=== PATIENT | female | born 1965 | race Caucasian/White ===

== ENCOUNTER → 2017-08-27 | Day surgery (SDC) | payer BC ==
--- OUTSIDE RECORDS SUMMARY | 2017-08-27 09:46 | XMS REPORT ---
:1965 Author Organization [employer] Care Team Providers Name Role Phone Arie Mayer Provider Role Unavailable Allergies No Known Allergies Problems Problem Type Condition Code Onset Dates Condition Status Problem Thyroid nodule E04.1 Active Problem HTN (hypertension), benign I10 Active Problem Anxiety F41.9 Active Assessment Thyroid nodule E04.1 Active Problem Mixed hyperlipidemia E78.2 Active Problem Status post hysterectomy Z90.710 Active Medications No Known Medications Results No Known Results Summary Purpose [facility] Submission
--- OUTSIDE RECORDS SUMMARY | 2017-08-27 09:46 | XMS REPORT ---
:1965 Author Organization [employer] Care Team Providers Name Role Phone Arie Mayer Provider Role Unavailable Allergies No Known Allergies Problems Problem Type Condition Code Onset Dates Condition Status Problem Thyroid nodule E04.1 Active Problem HTN (hypertension), benign I10 Active Problem Anxiety F41.9 Active Problem Mixed hyperlipidemia E78.2 Active Problem Status post hysterectomy Z90.710 Active Medications No Known Medications Results No Known Results Summary Purpose [employer] Submission
--- OUTSIDE RECORDS SUMMARY | 2017-08-27 09:46 | XMS REPORT | Clinical Summary ---
:1965 Author Organization [facility] Address [address] [place] [address] Care Team Providers Name Role Phone Asked, No Pcp Primary Care Provider Unavailable Allergies Active Allergy Reactions Severity Noted Date Comments Codeine GI Intolerance 06/09/2017 Abdominal pain/ stomach cramps Erythromycin GI Intolerance 06/09/2017 Abdominal cramps Current Medications Prescription Sig. Disp. Refills Start Date End Date Status ESTROGENS, CONJUGATED Take 1 tablet Active (PREMARIN ORAL) by mouth daily. ACETAMINOPHEN Take 1 tablet Discontinued (TYLENOL ORAL) by mouth 8 every 6 (six) hours as needed (for pain). IBUPROFEN ORAL Take 1 tablet Discontinued by mouth 8 every 6 (six) hours as needed (for pain). atorvastatin Take 1 tablet 30 tablet 0 06/10/2017 (LIPITOR) 20 MG (20 mg total) 8 tablet by mouth nightly for 30 days. Default OP ins metoprolol tartrate Take 1 tablet 60 tablet 0 06/10/2017 (LOPRESSOR) 25 mg (25 mg total) 8 tablet by mouth 2 (two) times a day for 30 days. amLODIPine (NORVASC) Take 1 tablet 30 tablet 0 06/11/2017 10 mg tablet (10 mg total) 8 by mouth daily for 30 days. cyclobenzaprine Take 1 tablet 15 tablet 0 06/10/2017 (FLEXERIL) 5 mg (5 mg total) 8 tablet by mouth 3 (three) times a day as needed for muscle spasms for up to 30 days. Active Problems Problem Noted Date Chest pain 06/09/2017 Encounters Date Type Specialty Care Team Description 07/02/2017 Hospital Encounter Radiology Hammad Ortiz Lumbar radiculopathy MD Bunny 07/02/2017 Hospital Encounter Radiology Hammad Ortiz Pain in thoracic MD Bunny spine 06/30/2017 Pre-Admit Testing Pre-Admission Hammad Ortiz Appointment Testing MD Bunny 06/30/2017 Anesthesia Event Radiology Indu Bass, BOBBI 06/25/2017 Procedure Pass Radiology 06/25/2017 Procedure Pass Radiology 06/25/2017 Ancillary Orders Radiology Hammad Ortiz Lumbar radiculopathy MD Bunny 06/25/2017 Ancillary Orders Radiology Hammad Ortiz Pain in thoracic MD Bunny spine 06/25/2017 Transcribe Orders Radiology Samina Thorne Pain in thoracic spine ( Primary Dx); Lumbar radiculopathy 06/09/2017 Orders Only Procedural [place], Cardiology Nse-Sandra Chase NP-C 06/09/2017 Orders Only Procedural Fredo Martins Cardiology 06/08/2017 - Emergency General Internal Bisi Turk, Chest pain, unspecified type (Primary Dx); 06/10/2017 Medicine DO Dyspnea, unspecified type; Ngozi Allison MD Mass of right kidney after 08/26/2016 Social History Tobacco Use Types Packs/Day Years Used Date Never Smoker Smokeless Tobacco: Never Used Alcohol Use Drinks/Week oz/Week Comments No Sex Assigned at Date Recorded Not on file Last Filed Vital Signs Vital Sign Reading Time Taken Blood Pressure 127/71 07/02/2017 11:15 AM CDT Pulse 68 07/02/2017 11:15 AM CDT Temperature 36.6 C (97.8 F) 07/02/2017 10:15 AM CDT Respiratory Rate 16 07/02/2017 11:15 AM CDT Oxygen Saturation 92% 07/02/2017 11:15 AM CDT Inhaled Oxygen Concentration - - Weight 103 kg (228 lb) 07/02/2017 7:40 AM CDT Height 160 cm (5' 3") 06/30/2017 12:29 PM CDT Body Mass Index 40.39 07/02/2017 7:40 AM CDT Plan of Treatment Health Maintenance Due Date Last Done Comments PAP SMEAR 09/10/1987 COLONOSCOPY 2016 MAMMOGRAM 2016 SHINGRIX VACCINE (#1) 2016 INFLUENZA VACCINE 11/19/2017 Procedures Procedure Name Priority Date/Time Associated Comments Diagnosis ECHOCARDIOGRAM 2D Routine 06/09/2017 6:05 Results for this COMPLETE W MMODE PM [employer] procedure are in SPECTRAL COLOR DOPPLER the results (48728) section. after 08/26/2016 Results MRI Thoracic Spine W Wo Contrast (07/02/2017 9:55 AM) Specimen Performing Laboratory [facility] [address] [place] [address] Narrative EXAMINATION:MRI THORACIC SPINE W WO CONTRAST CLINICAL HISTORY:M54.6 Pain in thoracic spine, M54.6 COMPARISON:None. Findings: Thoracic spine alignment is within normal limits. Mild multilevel endplate degenerative changes. Incidental vertebral body hemangioma at T4. 1.3 cm well-circumscribed densely sclerotic lesion at T6 without postcontrast enhancement or adjacent edema likely due to bone island. No central canal or foraminal narrowing. Visualized spinal cord is normal in size and signal intensity. Airspace opacification dependently may due to atelectasis, refer to dedicated imaging. IMPRESSION: No central canal or foraminal narrowing in the thoracic spine. No acute bony abnormalities. [facility]-[id number] Procedure Note Hm Interface, Radiology Results Incoming - 07/02/2017 11:52 AM CDT EXAMINATION: MRI THORACIC SPINE W WO CONTRAST CLINICAL HISTORY: M54.6 Pain in thoracic spine, M54.6 COMPARISON: None. Findings: Thoracic spine alignment is within normal limits. Mild multilevel endplate degenerative changes. Incidental vertebral body hemangioma at T4. 1.3 cm well-circumscribed densely sclerotic lesion at T6 without postcontrast enhancement or adjacent edema likely due to bone island. No central canal or foraminal narrowing. Visualized spinal cord is normal in size and signal intensity. Airspace opacification dependently may due to atelectasis, refer to dedicated imaging. IMPRESSION: No central canal or foraminal narrowing in the thoracic spine. No acute bony abnormalities. [facility]-[id number] MRI Lumbar Spine W Wo Contrast (07/02/2017 9:15 AM) Specimen Per[facility] [address] [place] [address] Narrative EXAMINATION:MRI LUMBAR SPINE W WO CONTRAST CLINICAL HISTORY:M54.16 Radiculopathylumbar region, M54.16 COMPARISON:June 10, 2017 FINDINGS: Lowermost functional disc space is assumed to be L5-S1. Lumbar spine alignement is within normal limits No suspicious focal bone marrow lesions. Visualized spinal cord is normal in appearance. No abnormal postcontrast enhancement. Exophytic fat-containing left renal mass compatible with given clinical history of cryoablation, refer to dedicated imaging. L1-2: No canal or foraminal narrowing. L2-3: No canal or foraminal narrowing. L3-4: Bilateral facet arthropathy. No canal or foraminal narrowing. L4-5: Bilateral facet arthropathy. Small posterior disc bulge. No canal or foraminal narrowing. L5-S1: Bilateral facet arthropathy. No canal or foraminal narrowing. IMPRESSION: Multilevel degenerative changes without canal or foraminal narrowing. [facility]-[id number] Procedure Note Interface, Radiology Results - 07/02/2017 12:04 PM CDT EXAMINATION: MRI LUMBAR SPINE W WO CONTRAST CLINICAL HISTORY: M54.16 Radiculopathy lumbar region, M54.16 COMPARISON: June 10, 2017 FINDINGS: Lowermost functional disc space is assumed to be L5-S1. Lumbar spine alignement is within normal limits No suspicious focal bone marrow lesions. Visualized spinal cord is normal in appearance. No abnormal postcontrast enhancement. Exophytic fat-containing left renal mass compatible with given clinical history of cryoablation, refer to dedicated imaging. L1-2: No canal or foraminal narrowing. L2-3: No canal or foraminal narrowing. L3-4: Bilateral facet arthropathy. No canal or foraminal narrowing. L4-5: Bilateral facet arthropathy. Small posterior disc bulge. No canal or foraminal narrowing. L5-S1: Bilateral facet arthropathy. No canal or foraminal narrowing. IMPRESSION: Multilevel degenerative changes without canal or foraminal narrowing. [facility]-[id number] CT Lumbar Spine Wo Contrast (06/10/2017 11:57 AM) Specimen Performing Laboratory [facility] [address] [place] [address] Narrative EXAMINATION:CT LUMBAR SPINE WO CONTRAST CLINICAL HISTORY:back pain COMPARISON:None. TECHNIQUE: Axial helical CT images throughout the lumbar spine were performed without IV contrast. Sagittal and coronal reformatted images were generated. All CT images were acquired using low-dose technique with automated exposure control. FINDINGS: There is no evidence of acute fracture, subluxation, or dislocation. There is normal lumbar lordosis and alignment. Vertebral bodies are preserved. There is no evidence of paraspinal hematoma. No significant spondylosis is appreciated. Intervertebral disc spaces are relatively preserved. There is minimal central shallow disc protrusion at L5-S1 level with no canal stenosis. Visualized paraspinal soft tissues are unremarkable. IMPRESSION: Unremarkable lumbar spinal CT with no evidence of acute traumatic abnormality. [id number] Procedure Note Hm Interface, Radiology Results Incoming - 06/10/2017 1:21 PM [employer] EXAMINATION: CT LUMBAR SPINE WO CONTRAST CLINICAL HISTORY: back pain COMPARISON: None. TECHNIQUE: Axial helical CT images throughout the lumbar spine were performed without IV contrast. Sagittal and coronal reformatted images were generated. All CT images were acquired using low-dose technique with automated exposure control. FINDINGS: There is no evidence of acute fracture, subluxation, or dislocation. There is normal lumbar lordosis and alignment. Vertebral bodies are preserved. There is no evidence of paraspinal hematoma. No significant spondylosis is appreciated. Intervertebral disc spaces are relatively preserved. There is minimal central shallow disc protrusion at L5-S1 level with no canal stenosis. Visualized paraspinal soft tissues are unremarkable. IMPRESSION: Unremarkable lumbar spinal CT with no evidence of acute traumatic abnormality. [facility][id number] Troponin (06/10/2017 4:30 AM)Only the most recent of3 resultswithin the time period is included. Component Value Ref Range Troponin <0.30 0.00 - 0.30 ng/mL Comment: 0.30 - 1.49 ng/mlMay indicate increased risk of acute coronary syndrome. >=1.5 ng/mlConsistent with acute myocardial infarction. The diagnostic value of a single normal or non-diagnostic result is questionable.Serial samples at 2-6 hour intervals are required to rule out acute myocardial injury. Specimen Performing Laboratory Plasma specimen [facility] DEPARTMENT OF PATHOLOGY AND GENOMIC MEDICINE [address] [place] [address] Lipid panel (06/10/2017 4:30 AM) Component Value Ref Range Cholesterol 160 <200 mg/dL Triglycerides 471 (H) <150 mg/dL HDL cholesterol 38 (L) >40 mg/dL LDL cholesterol 66Comment: Result obtained by direct LDL <100 mg/dL measurement Lipid panel interpretation SeeBelow Comment: Total Cholesterol (mg/dL) <200 Desirable 005-875Vgazsmoeyy-zsnc >=240High Triglycerides (mg/dL) <150 Normal 326-005Vkfykipeul-rmhq 200-499High >=500Very high HDL Cholesterol (mg/dL) <40Low (male) <40Low (female) LDL Cholesterol (mg/dL) <100 Optimal 100-129Near or above optimal 196-576Dvksuvzxij-bujx 160-189High >=190Very high Risk Catergories that modify LDL goals. Risk CatergoriesLDL goal (mg/dL) CHD and CHD risk equivalent<100 (10-year risk >20%) Multiple (2+) risk factors <130 (10-year risk=<20%) 0-1 risk factors <160 (<10-year risk) Defining levels of lipids in metabolic syndrome Triglycerides>=150 mg/dL HDL Cholesterol Men<40 mg/dL Women<40 mg/dL Non-HDL cholesterol is a second target for therapy in persons with high triglycerides (>=200 mg/dL) Specimen Performing Laboratory Plasma specimen [facility] DEPARTMENT OF PATHOLOGY AND GENOMIC MEDICINE [address] [place] [address] Abdomen WWO Contrast, Pelvis W Contrast (06/09/2017 7:11 PM) Specimen Performing Laboratory [facility] [address] [place] [address] Narrative EXAMINATION:CT ABDOMEN WWO CONTRAST PELVIS W CONTRAST CLINICAL HISTORY:RENAL MASS STATUS post partial nephrectomy in the upper pole of the right kidney and cryoablation of a mass in the left interpolar left kidney. TECHNIQUE: Noncontrast images of the abdomen were obtained. Subsequently, axial images of the abdomen and pelvis were obtained following intravenous administration of iodinated contrast. Sagittal and coronal computerized reformatted images were also obtained. COMPARISON:CT chest 06/09/2017. MRI abdomen 07/09/2013. CT abdomen 10/11/2012. FINDINGS: Abdomen: The liver density is homogeneous with no enhancing lesions. The portal vein diameter is normal. The gallbladder is normal in size and there are no calculi. The spleen size and consistency is normal. The pancreas size and lobulation is normal. The bowel caliber is normal. There is no free fluid and there is no free air. The adrenal glands are normal in size. There is a 2.0 x 2.9 cm fat density corticated lesion with no enhancement on the surface of the upper pole of the right kidney in the region of prior surgery representing fat necrosis.. There is a 15 mm nodule in the peripheral cortex of the interpolar left kidney with fat necrosis and no enhancement. No signs of adenopathy. Pelvis: The urinary bladder is decompressed. The ischiorectal fossa and inguinal regions are clear. Skeletal: There is osteoporosis with no lytic lesions. IMPRESSION: Small bilateral focal areas of fat density located in the region of the bilateral renal masses visualized on the pretreatment CT scan (07/06/2012) with no enhancement, representing fat necrosis. There is no diagnostic evidence of recurrent tumor. [facility]-[id number] Procedure Note Interface, Radiology Results Incoming - 06/09/2017 7:57 PM [employer] EXAMINATION: CT ABDOMEN WWO CONTRAST PELVIS W CONTRAST CLINICAL HISTORY: RENAL MASS STATUS post partial nephrectomy in the upper pole of the right kidney and cryoablation of a mass in the left interpolar left kidney. TECHNIQUE: Noncontrast images of the abdomen were obtained. Subsequently, axial images of the abdomen and pelvis were obtained following intravenous administration of iodinated contrast. Sagittal and coronal computerized reformatted images were also obtained. COMPARISON: CT chest 06/09/2017. MRI abdomen 07/09/2013. CT abdomen 10/11/2012. FINDINGS: Abdomen: The liver density is homogeneous with no enhancing lesions. The portal vein diameter is normal. The gallbladder is normal in size and there are no calculi. The spleen size and consistency is normal. The pancreas size and lobulation is normal. The bowel caliber is normal. There is no free fluid and there is no free air. The adrenal glands are normal in size. There is a 2.0 x 2.9 cm fat density corticated lesion with no enhancement on the surface of the upper pole of the right kidney in the region of prior surgery representing fat necrosis.. There is a 15 mm nodule in the peripheral cortex of the interpolar left kidney with fat necrosis and no enhancement. No signs of adenopathy. Pelvis: The urinary bladder is decompressed. The ischiorectal fossa and inguinal regions are clear. Skeletal: There is osteoporosis with no lytic lesions. IMPRESSION: Small bilateral focal areas of fat density located in the region of the bilateral renal masses visualized on the pretreatment CT scan (07/06/2012) with no enhancement, representing fat necrosis. There is no diagnostic evidence of recurrent tumor. [facility]-[id number] Echocardiogram complete w contrast and 3D if needed (06/09/2017 6:05 PM) Specimen Performing Laboratory [facility] [address] [place] [address] Narrative Echocardiography Report [address] [facility], [facility] [address], [place] [address] Pat.Name:Sherry DESAI.ID:[id number] .Date: 06/09/2017 Refer.MD:NGOZI ALLISON MD Exam Time: 5:29:00 PMStudy Type:Routine Echo Height:62.99in Weight:228.8lb BSA: 2.05 m2 DOBAge:1965,51Y Sex: FEMALEBP:194/97 HR:79 bpmSonogrphr: Alba Schuster, RDCS Pat. Stat.:Inpatient Room:J809 Study Status:Final Echo Event ID:[id number] Order ID:[id number] Reason for Study:HF - Initial eval of known or suspected HF (systeolic or diastolic) based on symptoms, signs, or abnormal test results History / Clinical:Cancer, Chest Pain Procedures:2D Echo, Colorflow Doppler, Strain SUMMARY: LV EF is normal. LA size is normal. LV relaxation is impaired. LV filling pressure is normal. Insufficient TR jet to estimate PA systolic pressure. No intracardiac flow abnormalities detected by Doppler. FINDINGS: LV: LV size is normal. LV EF is normal. Overall wall motion is normal.EF=65%. RV: RV size is mildly enlarged. RV systolic function is normal. LA: LA size is normal. RA: RA size is normal. AO: Aortic root diameter is normal. EITAN: No pericardial effusion. AV: No structural AV abnormalities noted. MV: No structural MV abnormalities noted. PV: No structural PV abnormalities noted. A trace of pulmonic regurgitation. TV: No structural TV abnormalities noted. Thao: LV relaxation is impaired. LV filling pressure is normal. Other:Insufficient TR jet to estimate PA systolic pressure. No intracardiacflow abnormalities detected by Doppler. MEASUREMENTS: 2D Parasternal [place] LVOT 2 cmLVPWd1.1 cm LVIDd4.8 cmIndex 2.3 cm/m Ao Rtd 3.1 cm Index1.5 cm/m LVIDs2.7 cmLV Vhqj233.5 g(87-129) LV%fs 43.8 % LVM Index 80.7 g/m2 IVSd 0.9 cmRWT0.4 LV EF SinglePlane LV Ad 35.4 cm2(9.5-22.3) LVESV 41 ml Index20 ml/m [id number] ml (59-136) Index58 ml/m LV SV 78 ml LV As 18.5 cm2(4-11.6) LV EF 65.5 %(55-75) LA Sng Plane LA Area8.7 cm2(8.8-23.4) LA Vol 14.5 ml Index7.1 ml/m LA LngAx 4.5 cm RA Sng Plane RA Area 11.7 cm2(8.3-19.5) RA Vol26.1 ml Index12.7 ml/m RA LngAx 4.4 cm Signed 06/10/2017 10:21 AM Blade Krueger M.D. Procedure Note Interface, Radiology Results In - 06/10/2017 10:21 AM [facility] Echocardiography Report [address] [place] [address], [address]Name: JUANY DESAI.ID: [id number] .Date: 06/09/2017 Refer.MD: NGOZI ALLISON MD Exam Time: 5:29:00 PM Study Type:Routine Echo Height: 62.99in Weight: 228.8lb BSA: 2.05 m2 Age: 6 1965,51Y Sex: FEMALE BP: 194/97 HR: 79 bpm Sonogrphr: Alba Schuster [facility] Pat. Stat.:Inpatient Room: J809 Study Status:Final Echo Event ID:[id number] Order ID: [id number] Reason for Study:HF - Initial eval of known or suspected HF (systeolic or diastolic) based on symptoms, signs, or abnormal test results History / Clinical:Cancer, Chest Pain Procedures:2D Echo, Colorflow Doppler, Strain SUMMARY: LV EF is normal. LA size is normal. LV relaxation is impaired. LV filling pressure is normal. Insufficient TR jet to estimate PA systolic pressure. No intracardiac flow abnormalities detected by Doppler. FINDINGS: LV: LV size is normal. LV EF is normal. Overall wall motion is normal. EF=65%. RV: RV size is mildly enlarged. RV systolic function is normal. LA: LA size is normal. RA: RA size is normal. AO: Aortic root diameter is normal. EITAN: No pericardial effusion. AV: No structural AV abnormalities noted. MV: No structural MV abnormalities noted. PV: No structural PV abnormalities noted. A trace of pulmonic regurgitation. TV: No structural TV abnormalities noted. Thao: LV relaxation is impaired. LV filling pressure is normal. Other: Insufficient TR jet to estimate PA systolic pressure. No intracardiac flow abnormalities detected by Doppler. MEASUREMENTS: 2D Parasternal [place] LVOT 2 cm LVPWd 1.1 cm LVIDd 4.8 cm Index 2.3 cm/m Ao Rtd 3.1 cm Index 1.5 cm/m LVIDs 2.7 cm LV Mass 165.5 g (87-129) LV%fs 43.8 % LVM Index 80.7 g/m2 IVSd 0.9 cm RWT 0.4 LV EF SinglePlane LV Ad 35.4 cm2 (9.5-22.3) LVESV 41 ml Index 20 ml/m LVEDV 119 ml (59-136) Index 58 ml/m LV SV 78 ml LV As 18.5 cm2 (4-11.6) LV EF 65.5 % (55-75) LA Sng Plane LA Area 8.7 cm2 (8.8-23.4) LA Vol 14.5 ml Index 7.1 ml/m LA LngAx 4.5 cm RA Sng Plane RA Area 11.7 cm2 (8.3-19.5) RA Vol 26.1 ml Index 12.7 ml/m RA LngAx 4.4 cm Signed 06/10/2017 10:21 AM Blade Krueger M.D. Venous blood gas (06/09/2017 10:13 AM) Component Value Ref Range pH, venous 7.41 7.32 - 7.42 pCO2, venous 39 (L) 45 - 51 mmHg pO2, venous 37 25 - 40 mmHg Base excess, venous 0 -2 - 2 meq/L O2 saturation, venous 71 (H) 40 - 70 % Bicarbonate, venous 24.0 21.0 - 28.0 mmol/L Specimen Performing Laboratory Blood [facility] DEPARTMENT OF PATHOLOGY AND GENOMIC MEDICINE [address] [place] [address] Angiogram Pe Chest (06/09/2017 4:50 AM) Specimen Performing Laboratory [facility] [address] [place] [address] Narrative EXAMINATION: CT ANGIOGRAM PE CHEST CLINICAL HISTORY: Pulmonary Embolism - Suspected pulmonary embolism in order to establish diagnosis TECHNIQUE: CT angiographic images of the chest were obtained during intravenous administration of iodinated contrast. Computerized reformatted images and 3-D MIP images were also obtained and archived (CT pulmonary embolus protocol). CT imaging was performed with iterative reconstruction technique and/or automated exposure control to reduce radiation dose. COMPARISON: None. IMPRESSION: No consolidations, effusions, or pneumothorax. The airway is patent. Arising from the isthmus of the thyroid gland, a partially calcified 1.2 x 0.8 similar nodule is seen. This would be better assessed with dedicated thyroid ultrasound on nonemergent basis. Heart size is normal. Aortic valve calcifications are seen. No mediastinal or hilar lymphadenopathy. No main branch, saddle region, or proximal segmental filling defects are seen to suggest pulmonary artery embolus. No aortic aneurysm, dissection, or pseudoaneurysm. Left vertebral artery arises directly from the aortic arch. No acute osseous abnormalities. Sclerotic density is identified of T6. This may just reflect a bone island. This could be better assessed with bone scan on nonemergent basis. Hypervascularity is seen of superior pole of right kidney. A mass in the superior pole of right kidney is suspected, and further evaluation with CT renal mass protocol or MRI is recommended on nonemergent basis. Conclusion: No pulmonary embolus. A mass in the superior pole of the right kidney is suspected and further evaluation with CT renal mass protocol or MRI is recommended on nonemergent basis. Single sclerotic density of T6 may just reflect a bone island. This could be better assessed with bone scan on nonemergent basis. [facility]-[id number] Procedure Note [facility], Radiology Results Incoming - 06/09/2017 5:07 AM [employer] EXAMINATION: CT ANGIOGRAM PE CHEST CLINICAL HISTORY: Pulmonary Embolism - Suspected pulmonary embolism in order to establish diagnosis TECHNIQUE: CT angiographic images of the chest were obtained during intravenous administration of iodinated contrast. Computerized reformatted images and 3-D MIP images were also obtained and archived (CT pulmonary embolus protocol). CT imaging was performed with iterative reconstruction technique and/or automated exposure control to reduce radiation dose. COMPARISON: None. IMPRESSION: No consolidations, effusions, or pneumothorax. The airway is patent. Arising from the isthmus of the thyroid gland, a partially calcified 1.2 x 0.8 similar nodule is seen. This would be better assessed with dedicated thyroid ultrasound on nonemergent basis. Heart size is normal. Aortic valve calcifications are seen. No mediastinal or hilar lymphadenopathy. No main branch, saddle region, or proximal segmental filling defects are seen to suggest pulmonary artery embolus. No aortic aneurysm, dissection, or pseudoaneurysm. Left vertebral artery arises directly from the aortic arch. No acute osseous abnormalities. Sclerotic density is identified of T6. This may just reflect a bone island. This could be better assessed with bone scan on nonemergent basis. Hypervascularity is seen of superior pole of right kidney. A mass in the superior pole of right kidney is suspected, and further evaluation with CT renal mass protocol or MRI is recommended on nonemergent basis. Conclusion: No pulmonary embolus. A mass in the superior pole of the right kidney is suspected and further evaluation with CT renal mass protocol or MRI is recommended on nonemergent basis. Single sclerotic density of T6 may just reflect a bone island. This could be better assessed with bone scan on nonemergent basis. [facility]-[id number] ECG ED Preliminary Interpretation - NOT AN ORDER (06/08/2017 11:45 PM) Mynor Turk DO 06/09/20175:14 AM ECG ED Preliminary Interpretation - Not an Order Performed by: BISI TURK Authorized by: BISI TURK ECG reviewed by ED Physician in the absence of a sound installation worker: yes Previous ECG: Previous ECG:Unavailable Interpretation: Interpretation: abnormal Rate: ECG rate:61 ECG rate assessment: normal Rhythm: Rhythm: sinus rhythm Ectopy: Ectopy: none QRS: QRS axis:Left QRS intervals:Normal Conduction: Conduction: normal ST segments: ST segments:Normal T waves: T waves: inverted Inverted:III and aVF Estimated GFR (06/08/2017 8:30 PM) Component Value Ref Range GFR Non Af Amer 59 (A) mL/min/1.73 m2 GFR Af Amer 71 mL/min/1.73 m2 Comment: Chronic kidney disease: <60 mL/min/1.73m2 Kidney failure: <15 mL/min/1.73m2 The estimated GFR is calculated from the IDMS-traceable Modification of Diet in Renal Disease Equation. The accuracy of the calculation is poor when the creatinine is normal. Calculated values >90 mL/min/1.73m2 are not reported. This equation has not been validated in children (<18 years), women, the elderly (>70 years), or ethnic groups other than Caucasians and Americans. Specimen Performing Laboratory Plasma specimen [facility] DEPARTMENT OF PATHOLOGY AND GENOMIC MEDICINE [address] [place] [address] CBC with platelet and differential (06/08/2017 8:30 PM) Component Value Ref Range WBC 9.34 4.50 - 11.00 k/uL RBC 5.14 4.20 - 5.50 m/uL HGB 14.3 12.0 - 16.0 g/dL HCT 43.0 37.0 - 47.0 % MCV 83.7 82.0 - 100.0 fL MCH 27.8 27.0 - 34.0 pg MCHC 33.3 31.0 - 37.0 g/dL RDW - SD 40.6 37.0 - 55.0 fL MPV 10.0 8.8 - 13.2 fL Platelet count 277 150 - 400 k/uL Nucleated RBC 0.00 /100 WBC Neutrophils 67.2 39.0 - 69.0 % Lymphocytes 21.5 (L) 25.0 - 45.0 % Monocytes 5.9 0.0 - 10.0 % Eosinophils 4.4 0.0 - 5.0 % Basophils 0.6 0.0 - 1.0 % Immature granulocytes 0.4Comment: "Immature granulocytes" 0.0 - 1.0 % (promyelocytes, myelocytes, metamyelocytes) Specimen Performing Laboratory Blood [facility] DEPARTMENT OF PATHOLOGY AND GENOMIC MEDICINE [address] [place] [address] B natriuretic peptide (06/08/2017 8:30 PM) Component Value Ref Range BNP 17 0 - 100 pg/mL Specimen Performing Laboratory Blood [facility] DEPARTMENT OF PATHOLOGY AND GENOMIC MEDICINE [address] [place] [address] Comprehensive metabolic panel (06/08/2017 8:30 PM) Component Value Ref Range Sodium 142 135 - 148 mEq/L Potassium 3.8 3.5 - 5.0 mEq/L Chloride 105 98 - 112 mEq/L CO2 24 24 - 31 mEq/L Anion gap 13 7 - 15 mEq/L Comment: Starting from July , anion gap calculation no longer incorporates potassium. Please note the change. BUN 18 6 - 20 mg/dL Creatinine 1.0 (H) 0.5 - 0.9 mg/dL Glucose 116 (H) 65 - 99 mg/dL Calcium 9.7 8.3 - 10.2 mg/dL Protein 7.0 6.3 - 8.3 g/dL Comment: 4.6-7.0 g/dL 1 week 4.4-7.6 g/dL 7 months-1year5.1-7.3 g/dL 1-2 years5.6-7.5 g/dL >3 years6.0-8.0 g/dL 18-150 6.3-8.3 g/dL Albumin 3.3 (L) 3.5 - 5.0 g/dL A/G ratio 0.9 0.7 - 3.8 Alkaline phosphatase 45 35 - 104 U/L AST 14 10 - 35 U/L ALT 12 5 - 50 U/L Total bilirubin 0.3 0.0 - 1.2 mg/dL Specimen Performing Laboratory Plasma specimen [facility] DEPARTMENT OF PATHOLOGY AND GENOMIC MEDICINE [address] [place] [address] ECG 12 lead (06/08/2017 8:24 PM) Component Value Ref Range Ventricular rate 61 Atrial rate 61 OH interval 168 QRSD interval 90 QT interval 416 QTC interval 418 P axis 1 30 QRS axis 1 -30 T wave axis 0 EKG impression Normal sinus rhythm-Left axis deviation-Minimal voltage criteria for LVH, may be normal variant-Nonspecific ST and T wave abnormality- Abnormal ECG-In automated comparison with ECG of 04-MAR-2014 14:38,-Nonspecific T wave abnormality now evident in Lateral leads- 11: 46:26 PM Specimen Performing Laboratory [facility] [address] [place] [address] after 08/26/2016 Insurance Payer Benefit Plan / Group Subscriber ID Type Phone Address BCBS BCBS CHOICE PPO/FEDERAL EMPL PPO xxxxxxxxxxxxxxx PPO [phone] [place] [id number]
--- OUTSIDE RECORDS SUMMARY | 2017-08-27 09:46 | XMS REPORT ---
:1965 Author Organization eClinicalWorks Care Team Providers Name Role Phone Mayer, [facility] Provider Role Unavailable Allergies, Adverse Reactions, Alerts Substance Reaction Event Type erthromycin Info Not Available Drug Allergy codeine Info Not Available Drug Allergy Losartan Potassium Info Not Available Drug Allergy Lisinopril Info Not Available Drug Allergy Amlodipine Besylate Info Not Available Drug Allergy Problems Problem Type Condition Code Onset Dates Condition Status Assessment Status post hysterectomy Z90.710 Active Assessment Anxiety F41.9 Active Assessment Thyroid nodule E04.1 Active Problem Thyroid nodule E04.1 Active Problem HTN (hypertension), benign I10 Active Problem Anxiety F41.9 Active Assessment HTN (hypertension), benign I10 Active Assessment Mixed hyperlipidemia E78.2 Active Problem Mixed hyperlipidemia E78.2 Active Problem Status post hysterectomy Z90.710 Active Medications Medication Code Code Instructions Start End Status Dosage System Date Date Metoprolol [facility] 92054066018 50 MG Orally Active 1 tablet Tartrate Twice a day with food Premarin [facility] 95316039873 1.25 MG Orally Active 1 tablet Daily for Three Weeks, 1 Week off Lipitor ND 35737948593 20 MG Orally Active 1 tablet Once a day Aspir-81 [facility] 54580793762 81 MG Orally Active 1 tablet Once a day HydrALAZINE HCl [facility] 92324226984 25 MG Orally Active 1 tablet Three times a with food day Results No Known Results Summary Purpose eClinicalWorks Submission
--- NOTE | 2017-08-27 11:54 | RAD REPORT ---
EXAM DESCRIPTION: US - Guided FNA Non Breast - 08/27/2017 10:52 am CLINICAL HISTORY: Dominant right-sided thyroid nodule, ^E04.1 COMPARISON: Thyroid ultrasound August 12, 2017. FINDINGS: The patient presents for ultrasound-guided fine-needle aspiration of a dominant nodule of the right side thyroid gland detailed August 12, 2017. The procedure, risks and alternatives were discussed with the patient in detail. After answering all questions, both oral and written consent were obtained. Time out procedure was performed. The patient had no contraindicated allergy or medication history. Preliminary imaging again identified the dominant 2.4 cm nodule on the right. Anterior right neck was prepped and draped in the usual sterile fashion. From a right anterolateral approach skin and deeper tissues were anesthetized with 1% lidocaine. Under direct sonographic visualization a 25 gauge needle was advanced into the nodule. Multiple to an d fro excursions of the needle tip were performed. Five additional needle passes were made into vario us sites within the dominant nodule. All obtained material was given to pathology for histology/cytol ogy evaluation. At the conclusion of the procedure there was no mass or hematoma in soft tissues. The patient tolerat ed the procedure well without immediate complications. Post-procedure care and precaution instruction s were given to the patient. IMPRESSION: Ultrasound-guided fine-needle aspiration performed as detailed. All obtained material wa s given to pathology for cytology/histology evaluation.
== END ==
LOC: FNA 09:44
PROVIDERS: ATTEND Family Medicine
PROC: 0G9H3ZX Drainage of Right Thyroid Gland Lobe, Percutaneous Approach, Diagnostic (ICD-10-PCS; principal; 2017-08-27)
PROC: BG44ZZZ Ultrasonography of Thyroid Gland (ICD-10-PCS; 2017-08-27)
DX: E04.1 Nontoxic single thyroid nodule (principal)
CPT/HCPCS: 76942; 88162

== ENCOUNTER 2018-07-06 11:34 | Emergency (ER) | payer BC ==
--- OUTSIDE RECORDS SUMMARY | 2018-07-06 11:38 | XMS REPORT ---
:1965 Author Organization eClinicalWorks Care Team Providers Name Role Phone Arie Mayer Provider Role Unavailable Allergies No Known Allergies Problems Problem Type Condition Code Onset Dates Condition Status Assessment Odynophagia R13.10 Active Assessment HTN (hypertension), benign I10 Active Assessment Mixed hyperlipidemia E78.2 Active Assessment Status post hysterectomy Z90.710 Active Assessment Anxiety F41.9 Active Assessment Thyroid nodule E04.1 Active Problem Anxiety F41.9 Active Problem Thyroid nodule E04.1 Active Problem Odynophagia R13.10 Active Problem Status post hysterectomy Z90.710 Active Problem HTN (hypertension), benign I10 Active Problem Mixed hyperlipidemia E78.2 Active Medications Medication Code Code Instructions Start End Status Dosage System Date Date Metoprolol [facility] 39468853561 50 MG Orally Active 1 tablet Tartrate Twice a day with food Premarin [facility] 80445449749 1.25 MG Orally Active 1 tablet Daily for Three Weeks, 1 Week off HydrALAZINE HCl ND 90141870497 25 MG Orally Inactive 1 tablet Three times a with food day Clonidine HCl [facility] 70762699035 0.1 MG Orally Active 1 tablet Once a day at bedtime Aspir-81 [facility] 35765548364 81 MG Orally Active 1 tablet Once a day Lipitor ND 28263047584 20 MG Orally Inactive 1 tablet Once a day Results No Known Results Summary Purpose eClinicalWorks Submission
--- OUTSIDE RECORDS SUMMARY | 2018-07-06 11:38 | XMS REPORT | Clinical Summary ---
:1965 Author Organization [facility] Address [address] [place] [address] Care Team Providers Name Role Phone Arie Mayer Primary Care Provider Allergies Active Allergy Reactions Severity Noted Date Comments Codeine GI Intolerance 06/09/2017 Abdominal pain/ stomach cramps Erythromycin GI Intolerance 06/09/2017 Abdominal cramps Medications Medication Sig Dispensed Refills Start Date End Date Status ESTROGENS, CONJUGATED Take 1 tablet 0 Active (PREMARIN ORAL) by mouth daily. atorvastatin (LIPITOR) Take 1 tablet 30 tablet 0 06/10/2017 07/10/2017 20 MG tablet (20 mg total) by mouth nightly for 30 days. Default OP ins metoprolol tartrate Take 1 tablet 60 tablet 0 06/10/2017 07/10/2017 (LOPRESSOR) 25 mg (25 mg total) tablet by mouth 2 (two) times a day for 30 days. amLODIPine (NORVASC) 10 Take 1 tablet 30 tablet 0 06/11/2017 07/11/2017 mg tablet (10 mg total) by mouth daily for 30 days. cyclobenzaprine Take 1 tablet 15 tablet 0 06/10/2017 07/10/2017 (FLEXERIL) 5 mg tablet (5 mg total) by mouth 3 (three) times a day as needed for muscle spasms for up to 30 days. Active Problems Problem Noted Date Chest pain 06/09/2017 Encounters Date Type Specialty Care Team Description 02/05/2018 Hospital Encounter Procedural Lidia Sylvester, Chest pain, Cardiology unspecified type 01/29/2018 Transcribe Orders Procedural Lidia Sylvester, Chest pain, Cardiology unspecified type (Primary Dx) after 07/05/2017 Social History Tobacco Use Types Packs/Day Years Used Date Never Smoker Smokeless Tobacco: Never Used Alcohol Use Drinks/Week oz/Week Comments No Sex Assigned at Date Recorded Not on file Job Start Date Occupation Industry Not on file Not on file Not on file Travel History Travel Start Travel End No recent travel history available. Last Filed Vital Signs Vital Sign Reading Time Taken Blood Pressure 178/104 02/05/2018 2:41 PM CDT Pulse 61 02/05/2018 2:41 PM CDT Temperature - - Respiratory Rate 16 02/05/2018 2:41 PM CDT Oxygen Saturation - - Inhaled Oxygen Concentration - - Weight 103 kg (228 lb) 02/05/2018 2:05 PM CDT Height 160 cm (5' 3") 02/05/2018 2:05 PM CDT Body Mass Index 40.39 02/05/2018 2:05 PM CDT Plan of Treatment Health Maintenance Due Date Last Done Comments CERVICAL CANCER SCREENING 09/10/1987 BREAST CANCER SCREENING 2016 COLON CANCER SCREENING 2016 SHINGLES VACCINES (#1) 2016 INFLUENZA VACCINE 11/19/2017 Procedures Procedure Name Priority Date/Time Associated Diagnosis Comments CV CTA CORONARY Routine 02/05/2018 2:55 Chest pain, Results for this ARTERIES W CONTRAST PM CDT unspecified type procedure are in the results section. ESTIMATED GFR Routine 02/05/2018 2:14 Results for this PM CDT procedure are in the results section. POC CREATININE Routine 02/05/2018 2:14 Results for this PM CDT procedure are in the results section. after 07/05/2017 Results Cv cta coronary arteries w contrast and ffr if needed (02/05/2018 2:55 PM CDT) Narrative Performed At [facility] Nuclear Cardiology and Cardiac CT [address] [place] [address] CTA Coronary Arteries Report Pat.Name:Sherry DESAI.ID:[id number] .Date: 02/05/2018Refer.MD:LIDIA SYLVESTER MD Exam Time: 2:18:00 PMStudy Type:CTA Coronary Arteries Height:63inWeight: 228lb BSA: 2.05 m2 DOBAge:1965,52Y Sex: FEMALEBP:206/95 HR:63 bpm Nuclear Tech:MayelaRT Anju(Carol)(CT) Pat. Stat.:Outpatient CPT - 4: CCTA w Thoracic Aorta (NonCongenital) [id number] Nuclear Event ID:[id number] Order ID:[id number] Reason for Study:Abnormal stress test Procedures:CT Prospective (intervals) Race:C SUMMARY: Technique: IV contrast was administered and sequential 0.[address] cuts were obtained through the chest [facility] scanner. Post-processing and 3D reconstruction were done using the [employer] workstation. Interactive image viewing and volumetric display and analysis were also performed. CTA RESULTS Left Main: A normal sized4 mm artery which arises normally from the left sinus of Valsalva and divides into the left anterior descending and circumflex coronary arteries. No significant atherosclerotic plaque is present. Left anterior descending (LAD): A normal sized 4mm artery which wraps around the apex and gives off one diagonal branch. No significant atherosclerotic plaque is present. The first diagonal is a 1.5 mm artery which has no significant atherosclerotic plaque. Left circumflex: A normal sized 3.5 mm non-dominant artery which gives off two major obtuse marginal arteries before terminating in the AV groove. No significant atherosclerotic plaque is present. The first obtuse marginal is a 2.5 mm artery which has no significant atherosclerotic plaque. The second obtuse marginal is a 1.5 mm artery which has no significant atherosclerotic plaque. Right coronary artery: A normal sized 4 mm dominant artery which arises normally from the right sinus of Valsalva and gives off several right ventricular branches, the posterior descending artery and the posterolateral artery.No significant atherosclerotic plaque is present. The posterior descending is a 1.5 mm artery which has no significant atherosclerotic plaque. The posterolateral branch is a 1.5 mm artery which has no significant atherosclerotic plaque. Ramus: None Stents: None. Bypass Grafts: None. Pulmonary Arteries: Normal pulmonary artery sizes with no proximal thrombus identified. Left Atrial and Pulmonary Vein(PV) Dimensions: Left atrial size (A-P diameter) 3.3 cm. Normal PV anatomy There is no evidence of the left atrial appendage clot. Thoracic Aortic Dimensions: No aortic aneurysm or dissection is seen. Aortic root: 3.5 cm. Mid ascending thoracic aorta 3.1 cm. Descending thoracic aorta 2.5 cm. Pericardium: No pericardial effusion or pericardial thickening. Non-Cardiac Findings: None. CONCLUSION CT coronary angiography shows no significant coronary artery atherosclerosis or coronary artery stenosis. STUDY QUALITY The study quality is good. COMMENTS: None. The above report was based on a dedicated Cardiovascular CTA Protocol and interpreted by a Color Checker Roving Or Yarn.Should a more comprehensive assessment of non-cardiovascular findings be desired, please consult a radiologist.These images are available in the [facility] Netgen PACS system. Signed 02/05/2018 04:50 PM Ifrah Waggoner MD Procedure Note Interface, Radiology Results In - 02/05/2018 4:51 PM CDT Nuclear Cardiology and Cardiac CT [address] [place] [address] CTA Coronary Arteries Report Pat.Name: WANDER DESAI Pat.ID: [id number] .Date: 02/05/2018 Refer.MD: LIDIA SYLVESTER MD Exam Time: 2:18:00 PM Study Type:CTA Coronary Arteries Height: 63in Weight: 228lb BSA: 2.05 m2 Age: 6 1965,52Y Sex: FEMALE BP: 206/95 HR: 63 bpm Nuclear Tech:RT Agus(R)(CT) Pat. Stat.:Outpatient CPT - 4: CCTA w Thoracic Aorta (NonCongenital) [id number] Nuclear Event ID:[id number] Order ID: [id number] Reason for Study:Abnormal stress test Procedures:CT Prospective (intervals) Race: C SUMMARY: Technique: IV contrast was administered and sequential 0.[address] cuts were obtained through the chest using the Siem[employer] Somatom Force CT scanner. Post-processing and 3D reconstruction were done using the [employer] workstation. Interactive image viewing and volumetric display and analysis were also performed. CTA RESULTS Left Main: A normal sized 4 mm artery which arises normally from the left sinus of Valsalva and divides into the left anterior descending and circumflex coronary arteries. No significant atherosclerotic plaque is present. Left anterior descending (LAD): A normal sized 4mm artery which wraps around the apex and gives off one diagonal branch. No significant atherosclerotic plaque is present. The first diagonal is a 1.5 mm artery which has no significant atherosclerotic plaque. Left circumflex: A normal sized 3.5 mm non-dominant artery which gives off two major obtuse marginal arteries before terminating in the AV groove. No significant atherosclerotic plaque is present. The first obtuse marginal is a 2.5 mm artery which has no significant atherosclerotic plaque. The second obtuse marginal is a 1.5 mm artery which has no significant atherosclerotic plaque. Right coronary artery: A normal sized 4 mm dominant artery which arises normally from the right sinus of Valsalva and gives off several right ventricular branches, the posterior descending artery and the posterolateral artery. No significant atherosclerotic plaque is present. The posterior descending is a 1.5 mm artery which has no significant atherosclerotic plaque. The posterolateral branch is a 1.5 mm artery which has no significant atherosclerotic plaque. Ramus: None Stents: None. Bypass Grafts: None. Pulmonary Arteries: Normal pulmonary artery sizes with no proximal thrombus identified. Left Atrial and Pulmonary Vein (PV) Dimensions: Left atrial size (A-P diameter) 3.3 cm. Normal PV anatomy There is no evidence of the left atrial appendage clot. Thoracic Aortic Dimensions: No aortic aneurysm or dissection is seen. Aortic root: 3.5 cm. Mid ascending thoracic aorta 3.1 cm. Descending thoracic aorta 2.5 cm. Pericardium: No pericardial effusion or pericardial thickening. Non-Cardiac Findings: None. CONCLUSION CT coronary angiography shows no significant coronary artery atherosclerosis or coronary artery stenosis. STUDY QUALITY The study quality is good. COMMENTS: None. The above report was based on a dedicated Cardiovascular CTA Protocol and interpreted by a Color Checker Roving Or Yarn. Should a more comprehensive assessment of non-cardiovascular findings be desired, please consult a radiologist. These images are available in the [facility] Netgen PACS system. Signed 02/05/2018 04:50 PM Ifrah Waggoner MD Performing Organization Address City/State/Zipcode Phone Number [facility] [phone] [place] [address] Estimated GFR (02/05/2018 2:14 PM CDT) Estimated GFR 58 (A) mL/min/1.73 m2 [facility] DEPARTMENT OF Comment: PATHOLOGY AND GENOMIC CatergoryUnitsInterpretation MEDICINE G1 >=90 Normal or high G2 60-89Mildly decreased Y3x98-64Rsmrex to moderately decreased E8j16-63Ljfvnhlirv to severely decreased G4 15-29Severely decreased G5 <15Kidney failure The eGFR was calculated using the Chronic Kidney Disease Epidemiology Collaboration (CKD-EPI) equation. Interpretation is based on recommendations of the National Kidney Foundation-Kidney Disease Outcomes Quality Initiative (NKF-KDOQI) published in 2014. Specimen Blood Performing Organization Address City/[facility]/Zipcode Phone Number [facility] DEPARTMENT OF PATHOLOGY AND [address] [place] [address] GENOMIC MEDICINE POC creatinine (02/05/2018 2:14 PM CDT) POC creatinine 1.1 (H) 0.5 - 0.9 mg/dl [facility] DEPARTMENT OF PATHOLOGY AND Comment: GENOMIC MEDICINE Meter ID: [id number] Vfx Artist: Shayne Ott Specimen Blood Performing Organization Address City/State/Zipcode Phone Number [facility] DEPARTMENT OF PATHOLOGY AND [address] [place] [address] GENOMIC MEDICINE after 07/05/2017 Insurance Payer Benefit Plan / Group Subscriber ID Type Phone Address BCBS BCBS CHOICE PPO/FEDERAL EMPL PPO xxxxxxxxxxxxxxx PPO (Home) [place] [address] Advance Directives Patient has advance care planning documents on file. For more information, please contact:[facility] [id number] [place] [address]
--- OUTSIDE RECORDS SUMMARY | 2018-07-06 11:38 | XMS REPORT ---
:1965 Author Organization eClinicalWorks Care Team Providers Name Role Phone Arie Mayer Provider Role Unavailable Allergies No Known Allergies Problems Problem Type Condition Code Onset Dates Condition Status Problem Anxiety F41.9 Active Problem Thyroid nodule E04.1 Active Problem Odynophagia R13.10 Active Problem Status post hysterectomy Z90.710 Active Problem HTN (hypertension), benign I10 Active Problem Mixed hyperlipidemia E78.2 Active Medications No Known Medications Results No Known Results Summary Purpose eClinicalWorks Submission
--- OUTSIDE RECORDS SUMMARY | 2018-07-06 11:38 | XMS REPORT ---
:1965 Author Organization eClinicalWorks Care Team Providers Name Role Phone Moreno Arie Provider Role Unavailable Allergies, Adverse Reactions, Alerts Substance Reaction Event Type Losartan Potassium Info Not Available Drug Allergy Lisinopril Info Not Available Drug Allergy Amlodipine Besylate Info Not Available Drug Allergy Problems Problem Type Condition Code Onset Dates Condition Status Assessment Mixed hyperlipidemia E78.2 Active Assessment Well adult on routine health check Z00.00 Active Assessment Screening for colon cancer Z12.11 Active Problem Anxiety F41.9 Active Problem Thyroid nodule E04.1 Active Problem Odynophagia R13.10 Active Problem Status post hysterectomy Z90.710 Active Problem HTN (hypertension), benign I10 Active Problem Mixed hyperlipidemia E78.2 Active Assessment Anxiety F41.9 Active Assessment Thyroid nodule E04.1 Active Assessment Odynophagia R13.10 Active Assessment Status post hysterectomy Z90.710 Active Assessment HTN (hypertension), benign I10 Active Medications Medication Code Code Instructions Start End Status Dosage System Date Date Metoprolol [facility] 38286803646 50 MG Orally Active 1 tablet Tartrate Twice a day with food Premarin [facility] 24789712330 1.25 MG Orally Active 1 tablet Daily for Three Weeks, 1 Week off Aspir-81 [facility] 65663997781 81 MG Orally Active 1 tablet Once a day Clonidine HCl [facility] 75982030539 0.1 MG Orally Active 1 tablet Once a day at bedtime Results No Known Results Summary Purpose eClinicalWorks Submission
--- OUTSIDE RECORDS SUMMARY | 2018-07-06 11:38 | XMS REPORT ---
:1965 Author Organization eClinicalWorks Care Team Providers Name Role Phone Moreno Arie Provider Role Unavailable Allergies No Known Allergies [...] Start End Status Dosage System Date Date Lipitor [facility] 10709168243 20 MG Orally Active 1 tablet Once a day HydrALAZINE HCl [facility] 38651319669 25 MG Orally Active 1 tablet Three times a with food day Premarin [facility] 26986858194 1.25 MG Orally Active 1 tablet Daily for Three Weeks, 1 Week off Aspir-81 [facility] 98184400719 81 MG Orally Active 1 tablet Once a day Metoprolol [facility] 48380843347 50 MG Orally Active 1 tablet Tartrate Twice a day with food Results No Known Results Summary Purpose eClinicalWorks Submission
--- OUTSIDE RECORDS SUMMARY | 2018-07-06 11:38 | XMS REPORT ---
[...] Medications Results No Known Results Summary Purpose [employer] Submission
--- OUTSIDE RECORDS SUMMARY | 2018-07-06 11:38 | XMS REPORT ---
[...] Medications Results No Known Results Summary Purpose [employer] Submission
--- OUTSIDE RECORDS SUMMARY | 2018-07-06 11:38 | XMS REPORT ---
:1965 Author Organization eClinicalWorks Care Team Providers Name Role Phone Mayer, [facility], [facility] Provider Role Unavailable Allergies, Adverse Reactions, Alerts [...] End Status Dosage System Date Date Metoprolol [facility] 52633404777 50 MG Orally Active 1 tablet Tartrate Twice a day with food Premarin [facility] 65656441243 1.25 MG Orally Active 1 tablet Daily for Three Weeks, 1 Week off Lipitor ND 80422240647 20 MG Orally Active 1 tablet Once a day Aspir-81 [facility] 51094116000 81 MG Orally Active 1 tablet Once a day HydrALAZINE HCl [facility] 11118656395 25 MG Orally Active 1 tablet Three times a with food day Results No Known Results Summary Purpose eClinicalWorks Submission
--- OUTSIDE RECORDS SUMMARY | 2018-07-06 11:38 | XMS REPORT ---
[...] Medications Results No Known Results Summary Purpose eClinicalTarget Data Submission
[2018-07-06] MEDS ORDERED: GLUCAGON 1 MG/VIAL ONE ×2 (12:15→13:56)
[2018-07-06 12:24] LABS: Absolute Lymphocytes (CBC) 1.4 K/uL (0.7-4.9); Absolute Monocytes 0.5 K/uL (0.1-1.3); Absolute Neutrophil 8.7 K/uL (1.8-8.0); Basophils % 0.7 % (0-1.3); Hematocrit 46.7 % (36.0-45.0); Lymphocytes % 12.9 % (15.3-44.8); MPV 8.8 fL (7.6-11.3); Monocytes % 4.2 % (3.3-12.3); RBC Red Blood Cell Count 5.72 M/uL (3.86-4.86)
[2018-07-06 12:44] LABS: Potassium 3.7 mmol/L (3.5-5.1)
--- NOTE | 2018-07-06 14:58 | EDPHYS ---
Physician Documentation [facility] Name: Juany Roberts Age: 52 yrs Sex: Female : 1965 Arrival Date: 07/06/2018 Time: 11:37 Bed 4 Private MD: Unknown, Unknown ED Physician Dejuan Reed HPI: 07/06 12:19 This 52 yrs old Female presents to ER via Ambulatory with complaints of jr8 Foreign Body In Throat. 12:19 The patient or guardian reports the patient has a suspected foreign body, that has been jr8 ingested. The reported likely foreign body is piece of meat. Onset: The symptoms/episode began/occurred acutely, last night. Current symptoms: pain, in the chest, vomiting. The patient has experienced a previous episode. The patient has not recently seen a physician. Patient stated that she has had swallow study a few months ago and noted to have weakened muscles. Stated that she was referred to GI for scope but had not had it completed as of yet. Last night had steak for dinner and felt a piece get stuck. Now cannot keep any food, fluids, or saliva down . Historical: - Allergies: 11:49 Erythromycin; hb 11:49 Codeine; hb - Immunization history:: Adult Immunizations up to date. - Social history:: Smoking status: Patient/guardian denies using tobacco. - Ebola Screening: : No symptoms or risks identified at this time. ROS: 12:19 Eyes: Negative for injury, pain, redness, and discharge, ENT: Negative for injury, jr8 pain, and discharge, Neck: Negative for injury, pain, and swelling, Cardiovascular: Negative for chest pain, palpitations, and edema, Respiratory: Negative for shortness of breath, cough, wheezing, and pleuritic chest pain, Back: Negative for injury and pain, MS/Extremity: Negative for injury and deformity, Skin: Negative for injury, rash, and discoloration, Neuro: Negative for headache, weakness, numbness, tingling, and seizure. 12:19 Abdomen/GI: Positive for nausea and vomiting, dysphagia, Negative for abdominal pain, abdominal cramps, abdominal distension, anorexia, hematemesis, black/tarry stool, rectal pain, rectal bleeding, bowel incontinence, flatulence. Exam: 12:19 Eyes: Pupils equal round and reactive to light, extra-ocular motions intact. Lids and jr8 lashes normal. Conjunctiva and sclera are non-icteric and not injected. Cornea within normal limits. Periorbital areas with no swelling, redness, or edema. ENT: Nares patent. No nasal discharge, no septal abnormalities noted. Tympanic membranes are normal and external auditory canals are clear. Oropharynx with no redness, swelling, or masses, exudates, or evidence of obstruction, uvula midline. Mucous membranes moist. Neck: Trachea midline, no thyromegaly or masses palpated, and no cervical lymphadenopathy. Supple, full range of motion without nuchal rigidity, or vertebral point tenderness. No Meningismus. Cardiovascular: Regular rate and rhythm with a normal S1 and S2. No gallops, murmurs, or rubs. Normal PMI, no JVD. No pulse deficits. Respiratory: Lungs have equal breath sounds bilaterally, clear to auscultation and percussion. No rales, rhonchi or wheezes noted. No increased work of breathing, no retractions or nasal flaring. Abdomen/GI: Soft, non-tender, with normal bowel sounds. No distension or tympany. No guarding or rebound. No evidence of tenderness throughout. Back: No spinal tenderness. No costovertebral tenderness. Full range of motion. Skin: Warm, dry with normal turgor. Normal color with no rashes, no lesions, and no evidence of cellulitis. MS/ Extremity: Pulses equal, no cyanosis. Neurovascular intact. Full, normal range of motion. Neuro: Awake and alert, GCS 15, oriented to person, place, time, and situation. Cranial nerves II-XII grossly intact. Motor strength 5/5 in all extremities. Sensory grossly intact. Cerebellar exam normal. Normal gait. Vital Signs: 11:47 BP 168 / 109; Pulse 99; Resp 24; Temp 99.4; Pulse Ox 100% on R/A; Pain 0/10; hb 13:00 BP 165 / 94; Pulse 81; Resp 20; Pulse Ox 99% on R/A; ph 14:00 BP 176 / 106; Pulse 88; Resp 19; Temp 98.9; Pulse Ox 99% on R/A; ph 15:19 BP 159 / 90; Pulse 91; Resp 16; Pulse Ox 98% on R/A; ph MDM: 11:58 Patient medically screened. jr8 14:55 Data reviewed: vital signs, nurses notes, lab test result(s). Data interpreted: Pulse jr8 oximetry: on room air is 100 %. Interpretation: normal. 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 Response to treatment: the patient's symptoms have resolved after treatment. ED course: Patient was able to pass the food bolus. Able to drink and keep all fluids down. Will f/u with Dr. Mcmanus on next available appointment . 07/06 11:58 Order name: CBC with Diff; Complete Time: 12:36 jr8 07/06 11:58 Order name: Basic Metabolic Panel; Complete Time: 12:48 jr8 07/06 11:58 Order name: IV; Complete Time: 12:02 jr8 Administered Medications: 12:12 Drug: Glucagon 1 mg Route: IVP; Site: left antecubital; ph 15:26 Follow up: Response: No adverse reaction ph 13:45 Drug: Glucagon 1 mg Route: IVP; Site: left antecubital; ph 15:26 Follow up: Response: No adverse reaction ph Disposition: 15:51 Co-signature as Attending Physician, Dejuan Reed MD I agree with the assessment and fransisco plan of care. Disposition: 07/06/18 14:57 Discharged to Home. Impression: Foreign body in esophagus. - Condition is Stable. - Discharge Instructions: Foreign Body. - Medication Reconciliation Form, Thank You Letter, Antibiotic Education, Prescription Opioid Use form. - Follow up: Azael Mcmanus MD; When: 2 - 3 days; Reason: Recheck today's complaints, Continuance of care, Re-evaluation by your physician. - Problem is new. - Symptoms have improved. Signatures: Dispatcher [employer] Dejuan Sam MD MD cha Roszak, Josh, PA PA jr8 Jacqueline Mckeon RN RN Susana Murguia RN RN Corrections: (The following items were deleted from the chart) 15:27 14:57 07/06/2018 14:57 Discharged to Home. Impression: Foreign body in esophagus. ph Condition is Stable. Forms are Medication Reconciliation Form, Thank You Letter, Antibiotic Education, Prescription Opioid Use. Follow up: Azael Mcmanus; When: 2 - 3 days; Reason: Recheck today's complaints, Continuance of care, Re-evaluation by your physician. Problem is new. Symptoms have improved. jr8
--- NOTE | 2018-07-06 14:58 | ER ---
Nurse's Notes [facility] Name: Juany Roberts Age: 52 yrs Sex: Female : 1965 Arrival Date: 07/06/2018 Time: 11:37 Bed 4 Private MD: Unknown, Unknown Diagnosis: Foreign body in esophagus Presentation: 07/06 11:47 Presenting complaint: Patient states: "Last night at 6 pm I was eating steak and a hb piece got stuck, now everything I swallow comes right back up.". Transition of care: patient was not received from another setting of care. Onset of symptoms was July 05, 2018. Risk Assessment: Do you want to hurt yourself or someone else? Patient reports no desire to harm self or others. Care prior to arrival: None. 11:47 Method Of Arrival: Ambulatory hb 11:47 Acuity: ANGEL 2 hb 14:46 Initial Sepsis Screen: Does the patient meet any 2 criteria? No. Patient's initial ph sepsis screen is negative. Does the patient have a suspected source of infection? No. Patient's initial sepsis screen is negative. Historical: - Allergies: 11:49 Erythromycin; hb 11:49 Codeine; hb - Immunization history:: Adult Immunizations up to date. - Social history:: Smoking status: Patient/guardian denies using tobacco. - Ebola Screening: : No symptoms or risks identified at this time. Screenin:46 Abuse screen: Denies threats or abuse. Denies injuries from another. Nutritional ph screening: No deficits noted. Tuberculosis screening: No symptoms or risk factors identified. Fall Risk None identified. Assessment: 12:15 General: Appears in no apparent distress. uncomfortable, obese, well groomed, Behavior ph is calm, cooperative, appropriate for age. Pain: Denies pain. Neuro: Level of Consciousness is awake, alert, obeys commands, Oriented to person, place, time, situation. Cardiovascular: Capillary refill < 3 seconds in bilateral fingers Patient's skin is warm and dry. Respiratory: Airway is patent Respiratory effort is even, unlabored, Respiratory pattern is regular, symmetrical. GI: Abdomen is round non-distended. Derm: Skin is intact, is healthy with good turgor, Skin is pink, warm \\T\\ dry. Musculoskeletal: Circulation, motion, and sensation intact. Range of motion: intact in all extremities. 13:55 Reassessment: Patient appears in no apparent distress at this time. Patient and/or ph family updated on plan of care and expected duration. Pain level reassessed. Patient is alert, oriented x 3, equal unlabored respirations, skin warm/dry/pink. Pt attempted to drink sip of water but was unable to pass and spit back out, additional dose of glucagon administered. 14:44 Reassessment: Patient appears in no apparent distress at this time. Patient and/or ph family updated on plan of care and expected duration. Pain level reassessed. Patient is alert, oriented x 3, equal unlabored respirations, skin warm/dry/pink. Pt actively vomiting, large piece of meat noted in emesis bag, ERP notified. Vital Signs: 11:47 BP 168 / 109; Pulse 99; Resp 24; Temp 99.4; Pulse Ox 100% on R/A; Pain 0/10; hb 13:00 BP 165 / 94; Pulse 81; Resp 20; Pulse Ox 99% on R/A; ph 14:00 BP 176 / 106; Pulse 88; Resp 19; Temp 98.9; Pulse Ox 99% on R/A; ph 15:19 BP 159 / 90; Pulse 91; Resp 16; Pulse Ox 98% on R/A; ph ED Course: 11:37 Patient arrived in ED. ag5 11:37 Unknown, Unknown is Private Physician. ag5 11:49 Triage completed. hb 11:50 Boston Bryant PA is PHCP. jr8 11:50 Dejuan Reed MD is Attending Physician. jr8 11:51 Arm band placed on. hb 12:02 Jacqueline Mckeon RN is Primary Nurse. ph 12:02 Inserted saline lock: 20 gauge in left antecubital area, using aseptic technique. Blood ph collected. 14:46 Patient has correct armband on for positive identification. Placed in gown. Bed in low ph position. Call light in reach. Side rails up X 1. Pulse ox on. NIBP on. 14:57 Azael Mcmanus MD is Referral Physician. jr8 15:01 No provider procedures requiring assistance completed. ph 15:26 IV discontinued, intact, bleeding controlled, No redness/swelling at site. Pressure ph dressing applied. Administered Medications: 12:12 Drug: Glucagon 1 mg Route: IVP; Site: left antecubital; ph 15:26 Follow up: Response: No adverse reaction ph 13:45 Drug: Glucagon 1 mg Route: IVP; Site: left antecubital; ph 15:26 Follow up: Response: No adverse reaction ph Outcome: 14:57 Discharge ordered by MD. owens 15:20 Discharged to home ambulatory. ph 15:20 Condition: good 15:20 Discharge instructions given to patient, Instructed on discharge instructions, follow up and referral plans. Demonstrated understanding of instructions, follow-up care. 15:27 Patient left the ED. ph Signatures: Boston Bryant PA PA jr8 Hall, Patricia, RN RN ph Susana Murguia RN RN Violeta Rincon [facility]
== END 2018-07-06 15:27 | disposition home or self-care (01) ==
LOC: ER 11:34
DX: T18.128A Food in esophagus causing other injury, initial encounter (principal); X58.XXXA Exposure to other specified factors, initial encounter; Y93.89 Activity, other specified; Y92.9 Unspecified place or not applicable; Z88.3 Allergy status to other anti-infective agents; Z88.5 Allergy status to narcotic agent
CPT/HCPCS: 36415; 80048; 85025; 96374; 99284; J1610

== ENCOUNTER 2020-12-23 10:09 | Emergency (ER) | payer BC ==
--- OUTSIDE RECORDS SUMMARY | 2020-12-23 10:14 | XMS REPORT | Continuity of Care Document ---
:1965 Author Organization [facility] t Address [address] [place] [address] Care Team Providers Name Role Phone Cleve Mayer DO Primary Care Physician Physician, Associated Attending Clinician Unavailable VISIT, [facility] Attending Clinician Unavailable Melonie Nicholson Attending Clinician Problems Condition Condition Condition Status Onset Resolution Last Treating Co mments Source Name Details Category Date Date Treatment Clinician Date D32.0 Diagnosis Active 2019-042020-07-19 M emoria PT WANTS 0-23 11:53:00 l EARLY D32.0 00:00: Rock n AM PT WANTS 00 EARLY AM Active 02/11/2020 [facility] FOLLOW UP Diagnosis Active 2020-07-14 Memoria 9- 14:27:00 l FOLLOW 00:00: Cristian UP 00 Active 0 [facility] MENINGIOMA Diagnosis Active 2020-01-12 Memoria D32.0 WITH 9-11 09:44:00 l GENERAL 00:00: Cristian ANESTHESIA MENINGIOMA 00 D32.0 WITH GENERAL ANESTHESIA Active 12/31/2019 [facility] BENING Diagnosis Active 2019-11-30 Mem oria NEOPLASM 3-30 06:18:00 l OF BENING 00:00: Cristian 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 07/19/2019 [facility] BENIGN Diagnosis Active 2018-042019-05-25 Mem oria NEOPLASM 2-13 06:12:00 l OF BENIGN 00:00: Cristian 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 04/02/2019 [facility] Chest pain Chest pain Disease Active 2018-0 M ethodi 2-19 st 00:00: Hospita 00 l Malignant Problem Resolve 2020-07-10 M emoria neoplastic d 07:19:08 l disease Cristian (disorder) Malignant neoplastic disease (disorder) Resolved Problem 07/10/2020 KIDNEY [facility] Neoplasm Problem Resolve 2020-07-10 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:08 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 07/10/2020 CANCER [facility] Headache Problem Active 2020-07-10 Mem oria (finding) 07:19:08 l Headache Rock n (finding) Active Problem 07/10/2020 [facility] Hypertensi Problem Active 2020-07-10 M emoria ve 07:19:08 l disorder, Cristian systemic Hypertensi arterial ve (disorder) disorder, systemic arterial (disorder) Active Problem 07/10/2020 Medical [facility] Morbid Problem Active 2020-07-10 Memor ia obesity 07:19:08 l (disorder) Morbid Herm janes obesity (disorder) Active Problem 07/10/2020 [facility] Neoplasm Problem Active 2020-07-10 Mem oria of 07:19:08 l meninges 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 07/10/2020 Left frontal [facility] Snoring Problem Active 2020-07-10 Richard pacheco (finding) 07:19:08 l Snoring Cristian (finding) Active Problem 07/10/2020 Medical [facility] Status Status Diagnosis [facility] Anxiety Anxiety Diagnosis [facility] Thyroid Thyroid Diagnosis Active [facility] HTN HTN Problem Active [facility] (hypertens (hypertens Annie kes - ion), ion), Memoria benign benign l Outpati ent Clinics Mixed Mixed Problem Active [facility] hyperlipid hyperlipid Annie kes - emia emia [facility] Odynophagi Odynophagi Diagnosis Active [facility] Renal Renal Diagnosis Active [facility] insufficie insufficie [facility] k[facility] Need for Need for Diagnosis Active [facility] influenza influenza Luke s - vaccinatio vaccinatio Me moria n n l [facility] ent Clinics Allergies, Adverse Reactions, Alerts Allergy Allergy Status Severity Reaction(s) Onset Inactive Treating Comm ents Source Name Type Date Date Clinician Codeine Propensi Active GI Abdominal Meth ernesto ty to Intolerance 2-19 pain/ st adverse 00:00: stomach Hospita reaction 00 cramps l s to drug Erythrom Propensi Active GI Abdominal Met hodi ycin ty to Intolerance 2-[address] adverse 00:00: Hospita reaction 00 l s to drug Lisinopr Adverse Active Info Not [facility] Reaction Available [facility] Amlodipi Adverse Active Info Not [facility] ne Reaction Available [facility] - Bes[facility] ent Clinics Losartan Adverse Active Info Not [facility] [place] Reaction Available [facility] - [facility]ics lisinopr lisinopr Active Memori a il il l [place] codeine codeine Active [facility] Cristian erythrom erythrom Active Memori a ycin ycin l Cristian Social History Social Habit Start Date Stop Date Quantity Comments Source Social History 2020-07-07 2020-07-07 [facility] rhys 13:17:46 13:17:46 Tobacco use and 2018-02-05 2018-02-05 Never used [facility] 00:[facility]:00 00:00:00 Hospital Alcohol intake 2018-02-05 2018-02-05 Current [facility] 00:00:00 00:00:00 non-drinker of Hospital alcohol (finding) Sex Ass[birth year] At [birth year] [facility] 00:00:00 00:[facility]:00 [facility] Smoking Status Start Date Stop Date Source [facility] smoker [facility] Medications Ordered Filled Start Stop Current Ordering Indication Dosage Frequency Signature Comments Components Source Medication Medication Date Date Medication? Clinician (SIG) Name Name Joshuamorpbertin No Notes: Richard pacheco ne 07-07 Same as l 17:47: Dilaudid Flumazenil No Notes: Memor ia 07-07 (Same as: l 17:47: Romazicon) Naloxone No Notes: Memoria 07-07 Same as l 17:47: Narcan Ondansetron No Notes: Richard pacheco 07-07 (Same as: l 17:47: Zofran) MEDICATION WASTE Product Size: 4 mg Product Wasted: ___ mg Promethazin No Notes: Do M emoria e 07-07 not give l 17:47: IV push. (Same as: Phenergan) midazolam No Route: IV, Me moria (ANES) 07-07 Drug form: l 17:12: SOLN, ONCE, Stop date: 07/07/20 12:12:00 CDT lidocaine No Route: IV, Me moria (ANES) 07-07 Drug form: l 17:12: INJ, ONCE, Stop date: 07/07/20 12:12:00 CDT fentaNYL No Route: IV, Mem oria (ANES) 07-07 Drug form: l 17:12: INJ, ONCE, Stop date: 07/07/20 12:12:00 CDT propofol No Route: IV, Mem oria (ANES) 07-07 Drug form: l 17:12: INJ, ONCE, Stop date: 07/07/20 12:12:00 CDT rocuronium No Route: IV, M emoria (ANES) 07-07 Drug form: l 17:12: INJ, ONCE, Stop date: 07/07/20 12:12:00 CDT Kayexalate No Notes: Memor ia 07-07 (sodium l 15:59: polystyren e sulfonate 15 gm/60 ml SONJA) Shake well before use. (Same as: Kayexalate , SPS) Hydralazine No Notes: Richard pacheco 01-11 (Same as: l 18:13: Apresoline [place] ) Push over 5 minutes Labetalol 0 No 10 mg, Memori a 01-11 Route: l 18:13: IVP, Cristian 00 Q5Min, Dosing Weight 101.9, kg, PRN Elevated BP, Start date: 01/12/20 13:13:00 CDT, Duration: 5 doses or times, Stop date: Limited # of times Oxycodone 2019-0 No Notes: Memori a Hydrochlori 01-11 (Same as: l de 5 MG 18:13: Roxicodone Herm janes Oral Tablet ) Hydromorpho 0 No Notes: Richard pacheco ne 01-11 Same as l 18:13: Dilaudid Flumazenil No Notes: Memor ia 01-11 (Same as: l 18:13: Romazicon) Naloxone 2019-0 No Notes: Memoria 01-11 Same as l 18:13: Narcan Ondansetron No Notes: Richard pacheco 01-11 (Same as: l 18:13: Zofran) MEDICATION WASTE Product Size: 4 mg Product Wasted: ___ mg Sodium No 1,000 mL, Memori a Chloride 01-11 Rate: 50 l 0.9% IV 17:08: ml/hr, [place] 1,000 mL 00 Infuse over: 20 hr, Route: IV, Dosing Weight 101.9 kg, Total Volume: 1,000, Priority: Routine, Start date: 01/12/20 12:08:00 CDT, Duration: 30 day, Stop date: 02/11/20 12:07:00 CDT, 2.17, m2, 0 Acetaminoph 0 No 325 mg, Mem oria en 01-11 Route: PO, l 17:08: Drug form: [place] TAB, Q4H, Dosing Weight 101.9, kg, PRN Pain Score 1-3, Start date: 01/12/20 12:08:00 CDT, Duration: 30 day, Stop date: 02/11/20 12:07:00 CDT Acetaminoph 2019-0 No 1 tab, Richard pacheco en 325 MG / 01-11 Route: PO, l Hydrocodone 17:08: Drug Form: [place] Bitartrate 00 TAB, 5 MG Oral Dosing Tablet Weight 101.9, kg, Q4H, PRN Pain Score 4-6, Start date: 01/12/20 12:08:00 CDT, Duration: 30 day, Stop date: 02/11/20 12:07:00 CDT Bupivacaine 2020-0 No 30 mL, Richard pacheco Hydrochlori 01-11 Route: l de 2.5 11:00: MISC, [place] MG/ML / 00 Dosing Epinephrine Weight 0.005 MG/ML 102.273, Injectable kg, Solution ONCALL, Start date: 01/12/20 6:00:00 CDT, Duration: 30 day, Stop date: 02/11/20 5:59:00 CDT Bacitracin 2020-0 No 1 appl, Richard pacheco 0.5 UNT/MG 01-11 Route: l / Polymyxin 11:00: TOP, Rock n B 10 UNT/MG 00 ONCALL, Topical Drug form: Ointment OINT, [Polysporin Priority: ] Routine, Start date: 01/12/20 6:00:00 CDT, Duration: 1 doses or times Fentanyl 2020-0 No 50 Memoria - microgram, l 11:00: Route: Cristian 00 IVP, ONCALL, Dosing Weight 102.273, kg, Priority: Routine, Start date: 01/12/20 6:00:00 CDT, Duration: 1 doses or times Sodium 2020-0 No 1,000 mL, Memori a Chloride 01-11 Rate: 50 l 0.9% IV 10:16: ml/hr, [place] 1,000 mL 00 Infuse over: 20 hr, Route: IV, Dosing Weight 102.273 kg, Total Volume: 1,000, Priority: Routine, Start date: 01/12/20 5:16:00 CDT, Duration: 30 day, Stop date: 02/11/20 5:15:00 CDT, 2.17, m2, 0 Dexamethaso 2020-0 Yes Notes: Richard pacheco ne 01-11 Concentrat l 10:16: ion: Cristian 00 4mg/ml Famotidine 2020-0 Yes Notes: Memor ia - (Same as: l 10:16: Pepcid) Cristian 00 Can be dilute in 5-10cc NS IVP: Slow IV push over at least 2 minutes. Ondansetron 2020-0 No Notes: Richard pacheco 01-11 (Same as: l 10:16: Zofran) MEDICATION WASTE Product Size: 4 mg Product Wasted: ___ mg Promethazin 2020-0 No 25 mg, Richard pacheco e 01-11 Route: l 10:16: IVPB, Q6H, Dosing Weight 102.273, kg, PRN Nausea & Vomiting, Start date: 01/12/20 5:16:00 CDT, Duration: 30 day, Stop date: 02/11/20 5:15:00 CDT Fentanyl 2020-0 No 25 Memoria 01-11 microgram, l 10:16: Route: IVP, Q1H, Dosing Weight 102.273, kg, PRN Pain Score 7-10, Priority: Routine, Start date: 01/12/20 5:16:00 CDT, Duration: 1 doses or times, Stop date: Limited # of times Hydralazine 2019-0 No 20 mg, Richard pacheco 01-11 Route: IV, l 10:16: Q4H, Dosing Weight 102.273, kg, PRN Hypertensi on, Start date: 01/12/20 5:16:00 CDT, Duration: 30 day, Stop date: 02/11/20 5:15:00 CDT Labetalol 2019-0 No 10 mg, Memori a 01-11 Route: l 10:16: IVP, Drug form: INJ, [id number] , Dosing Weight 102.273, kg, PRN Hypertensi on, Start date: 01/12/20 5:16:00 CDT, Duration: 3 doses or times, Stop date: Limited # of times Hydralazine 2019-0 No Notes: Richard pacheco 8-11 (Same as: l 14:41: Apresoline ) Push over 5 minutes Labetalol 2020-0 No 10 mg, 2 Richard pacheco 8-11 mL, Route: l 14:41: IVP, Drug form: INJ, Q5Min, Dosing Weight 101.5, kg, PRN Elevated BP, Start date: 11/30/19 9:41:00 CDT, Duration: 5 doses or times, Stop date: Limited # of times, 0 Oxycodone 2019-0 No Notes: Memori a Hydrochlori 11-29 (Same as: l de 5 MG 14:41: Roxicodone Herm janes Oral Tablet ) Flumazenil 0 No Notes: Memor ia 11-29 (Same as: l 14:41: Romazicon) Naloxone 0 No Notes: Memoria 11-29 Same as l 14:41: Narcan Promethazin No Notes: Do M emoria e 11-29 not give l 14:41: IV push. (Same as: Phenergan) Robitussin No Notes: Memor ia 100 mg/5 mL 11-29 (Same as: l oral liquid 14:41: Robitussin ) Triamterene 2020-0 Yes 25 mg, PO, Memoria 11-21 BID l 16:53: Premarin 2019-0 No 0.9 mg, 1 Richard pacheco 2-05 tab, l 03:00: Route: PO, Drug form: TAB, Bedtime, Dosing Weight 105.3, kg, Start date: 05/25/19 21:00:00 [employer], Duration: 30 day, Stop date: 06/23/19 21:00:00 [employer] Acetaminoph 2019-0 No 1,000 mg, M emoria en 05-25 Route: PO, l 16:13: Drug form: Cristian 00 TAB, ONCE, Dosing Weight 105.3, kg, PRN Pain Score 1-3, Start date: 05/25/19 10:13:00 [employer] Flumazenil 2020-0 No 0.2 mg, Richard pacheco - Route: l 16:13: IVP, PRN, Dosing Weight 105.3, kg, PRN Benzodiaze pine Reversal, Initial dose, Start date: 05/25/19 10:13:00 [employer], Duration: 30 day, Stop date: 06/24/19 10:12:00 [employer] Naloxone 2020-0 No 0.4 mg, Memori a 2- Route: l 16:13: IVP, Cristian 00 Q2MIN, Dosing Weight 105.3, kg, PRN Narcotic Reversal, Start date: 05/25/19 10:13:00 [employer], Duration: 8 doses or times, Stop date: Limited # of times Ondansetron 2020-0 No 4 mg, Memor ia 2-04 Route: l 16:13: IVP, ONCE, Dosing Weight 105.3, kg, PRN Nausea & Vomiting, Start date: 05/25/19 10:13:00 [employer] ondansetron 2020-0 No Route: IV, Memoria (ANES) 2-04 Drug form: l 15:21: INJ, ONCE, Stop date: 05/25/19 9:21:00 [employer] ePHEDrine 2020-0 No Route: IV, Me moria (ANES) 2- Drug form: l 15:11: INJ, ONCE, Stop date: 05/25/19 9:11:00 [employer] Aspirin 81 2020-0 No 81 mg, 1 Mem oria MG Enteric 2-04 tab, l Coated 15:00: Route: PO, Lupe nn Tablet 00 Drug form: ECTAB, Daily, Dosing Weight 105.3, kg, Start date: 05/25/19 9:00:00 [employer], Duration: 30 day, Stop date: 06/23/19 9:00:00 [employer] carvedilol 2020-0 No 12.5 mg, Mem oria 2-04 Route: PO, l 15:00: Drug form: Cristian 00 TAB, BID, Dosing Weight 105.3, kg, Start date: 05/25/19 9:00:00 [employer], Duration: 30 day, Stop date: 06/23/19 17:00:00 [employer] Clonidine 2020-0 No 0.2 mg, 1 Mem oria Hydrochlori 2-04 tab, l de 0.2 MG 15:00: Route: PO, He rmann Oral Tablet 00 Drug form: TAB, BID, Dosing Weight 105.3, kg, Start date: 05/25/19 9:00:00 [employer], Duration: 30 day, Stop date: 06/23/19 17:00:00 [employer] NIFEdipine 2020-0 No 30 mg, 1 Mem oria 30 mg oral 2-04 tab, l tablet, 15:00: Route: PO, Herm janes extended Drug form: release ERTAB, Daily, Dosing Weight 105.3, kg, Start date: 05/25/19 9:00:00 [employer], Duration: 30 day, Stop date: 06/23/19 9:00:00 [employer] midazolam 2020-0 No Route: IV, Me moria (ANES) 2-04 Drug form: l 14:25: SOLN, [place] 00 ONCE, Stop date: 05/25/19 8:25:00 [employer] lidocaine 2020-0 No Route: IV, Me moria (ANES) 2-04 Drug form: l 14:25: INJ, ONCE, [place] 00 Stop date: 05/25/19 8:25:00 [employer] fentaNYL 2020-0 No Route: IV, Mem oria (ANES) 2-04 Drug form: l 14:25: INJ, ONCE, Stop date: 05/25/19 8:25:00 [employer] propofol 2020-0 No Route: IV, Mem oria (ANES) 2-04 Drug form: l 14:25: INJ, ONCE, Stop date: 05/25/19 8:25:00 [employer] Lactated 2019-0 No Route: IV, Mem oria Ringers 2-04 Total l Injection 14:00: Volume: Lupe nn IV (ANES) 00 1,000, 1000 mL Start date: 05/25/19 8:00:00 [employer], Stop date: 05/25/19 9:00:00 [employer] Estrogens, 2019-0 Yes 0.9 mg = 1 M emoria Conjugated 1-29 tab, PO, l (MCFP) 0.9 20:21: Bedtime, # He rmann MG Oral 00 30 tab, 0 Tablet Refill(s) [Premarin] carvedilol 2019-0 Yes 12.5 mg = Me moria 12.5 mg 1-29 1 tab, PO, l oral tablet 20:20: BID, # 180 Cristian 00 tab, 1 Refill(s) NIFEdipine 2019-0 Yes 30 mg = 1 Me moria 30 mg oral 1-29 tab, PO, l tablet, 20:20: Daily, # Rock n extended 00 30 tab, 0 release Refill(s) Aspirin 81 2020-0 Yes 81 mg = 1 Me moria MG Enteric 1-29 tab, PO, l Coated 20:20: Daily, # [place] Tablet 00 90 tab, 3 Refill(s) Clonidine 2019- Yes 0.2 mg = 1 Me moria Hydrochlori 1-29 tab, PO, l de 0.2 MG 20:19: BID, # 60 Her isaac Oral Tablet 00 tab, 0 Refill(s) ESTROGENS, 2017-0 Yes 1{tbl} QD Take 1 Met hodi CONJUGATED 2-[address] (PREMARIN 01:04: mouth Hospita ORAL) 22 daily. l Premarin Premarin Yes Arie [address] [facility] Aspir-81 Aspir-81 Yes Arie [address] [facility] Clonidine Clonidine Yes Arie [address] [facility] [address] HCl HCl [facility] at bedtime Formerly named [facility] Carvedilol Carvedilol Yes Arie [address] [facility] named [facility] Immunizations Ordered Filled Immunization Date Status Comments [facility] e Immunization Name Name Afluria single dose Afluria single dose 2019-02-[address] [facility] Vital Signs Vital Name Observation Time Observation Value Comments Source Respitory Rate 2020-07-07 20:20:00 Memori al [place] Systolic (mm Hg) 2020-07-07 20:20:00 Richard rial Cristian Diastolic (mm Hg) 2020-07-07 20:20:00 Mem orial Cristian Respitory Rate 2020-07-07 19:30:00 Memori al Cristian Systolic (mm Hg) 2020-07-07 19:30:00 Richard rial [place] Diastolic (mm Hg) 2020-07-07 19:30:00 Mem orial [place] Respitory Rate 2020-07-07 19:00:00 Memori al Cristian Systolic (mm Hg) 2020-07-07 19:00:00 Richard rial [place] Diastolic (mm Hg) 2020-07-07 19:00:00 [facility] orial [place] Height 2020-07-07 13:05:00 160.02 cm [facility] Weight 2020-07-07 13:05:00 [facility] BMI Calculated 2020-07-07 13:05:00 Memori al [place] Heart Rate 2020-07-07 13:05:00 [facility] [place] Height 2020-06-30 16:02:00 160.02 cm [facility] Cristian Weight 2020-06-30 16:02:00 [facility] Cristian BMI Calculated 2020-06-30 16:02:00 Memori al [place] Respitory Rate 2020-01-12 20:53:00 Memori al Cristian Systolic (mm Hg) 2020-01-12 20:53:00 Richard rial Cristian Diastolic (mm Hg) 2020-01-12 20:53:00 Mem orial [place] Respitory Rate 2020-01-12 19:45:00 Memori al Cristian Systolic (mm Hg) 2020-01-12 19:45:00 Richard rial [place] Diastolic (mm Hg) 2020-01-12 19:45:00 Mem orial Cristian Respitory Rate 2020-01-12 19:30:00 Memori al Cristian Systolic (mm Hg) 2020-01-12 19:30:00 Richard rial [place] Diastolic (mm Hg) 2020-01-12 19:30:00 Mem orial Cristian Heart Rate 2020-01-12 10:58:00 [facility] [place] Height 2020-01-12 10:44:00 160.02 cm [facility] [place] Weight 2020-01-12 10:44:00 [facility] [place] BMI Calculated 2020-01-12 10:44:00 Memori al Cristian Height 2020-01-11 16:06:00 160.02 cm [facility] [place] Weight 2020-01-11 16:06:00 [facility] Cristian BMI Calculated 2020-01-11 16:06:00 Memori al Cristian Height 2020-01-04 18:47:00 160.02 cm [facility] Cristian Weight 2020-01-04 18:47:00 [facility] Cristian BMI Calculated 2020-01-04 18:47:00 Memori al [place] Respitory Rate 2019-11-30 16:07:00 Memori al Cristian Heart Rate 2019-11-30 16:07:00 [facility] Cristian Systolic (mm Hg) 2019-11-30 16:07:00 Richard rial [place] Diastolic (mm Hg) 2019-11-30 16:07:00 Mem orial [place] Respitory Rate 2019-11-30 15:45:00 Memori al Cristian Systolic (mm Hg) 2019-11-30 15:45:00 Richard rial [place] Diastolic (mm Hg) 2019-11-30 15:45:00 Mem orial Cristian Respitory Rate 2019-11-30 15:30:00 Memori al Cristian Systolic (mm Hg) 2019-11-30 15:30:00 Richard rial Cristian Diastolic (mm Hg) 2019-11-30 15:30:00 Mem orial [place] Height 2019-11-30 11:30:00 160.02 cm [facility] [place] Weight 2019-11-30 11:30:00 [facility] Cristian BMI Calculated 2019-11-30 11:30:00 Memori al Cristian Heart Rate 2019-11-30 11:30:00 [facility] [place] Height 2019-11-22 16:50:00 160.02 cm [facility] [place] Weight 2019-11-22 16:50:00 [facility] [place] BMI Calculated 2019-11-22 16:50:00 Memori al Cristian Respitory Rate 2019-05-25 16:40:00 Memori al [place] Systolic (mm Hg) 2019-05-25 16:40:00 Richard rial [place] Diastolic (mm Hg) 2019-05-25 16:40:00 Mem orial [place] Respitory Rate 2019-05-25 16:15:00 Memori al Cristian Systolic (mm Hg) 2019-05-25 16:15:00 Richard rial Cristian Diastolic (mm Hg) 2019-05-25 16:15:00 Mem orial [place] Respitory Rate 2019-05-25 16:00:00 Memori al Cristian Systolic (mm Hg) 2019-05-25 16:00:00 Richard rial Cristian Diastolic (mm Hg) 2019-05-25 16:00:00 Mem orial Cristian Height 2019-05-25 12:40:00 160.02 cm Memorial Cristian Weight 2019-05-25 12:40:00 [facility] [place] BMI Calculated 2019-05-25 12:40:00 Memori al Cristian Heart Rate 2019-05-25 12:40:00 [facility] Cristian Height 2019-05-19 20:29:00 160.02 cm [facility] Cristian Weight 2019-05-19 20:29:00 [facility] [place] BMI Calculated 2019-05-19 20:29:00 Memori al Cristian Procedures Procedure Date / Time Performed Performing Clinician Sourc e Hysterectomy [facility] [place] Dilatation and curettage [facility] [place] Parotidectomy [facility] [place] Partial nephrectomy [facility] Her isaac [facility] section<sup>1</sup> Plan of Care Planned Activity Planned Date Details Comments Source Future Scheduled Test COVID-19 VACCINE (1) [facility] [code = COVID-19 VACCINE (1)] Future Scheduled Test Hepatitis C screening [facility] (procedure) [code = 249056871] Future Scheduled Test Screening for malignant [facility] neoplasm of cervix (procedure) [code = 515747649] Future Scheduled Test BREAST CANCER SCREENING [facility] [code = BREAST CANCER SCREENING] Future Scheduled Test COLONOSCOPY SCREENING [facility] [code = COLONOSCOPY SCREENING] Future Scheduled Test SHINGLES VACCINES (#1) [facility] [code = SHINGLES VACCINES (#1)] Future Scheduled Test INFLUENZA VACCINE [code [facility] = INFLUENZA VACCINE] Encounters Start End Encounter Admission Attending Care Care Encounter Source Date/Time Date/Time Type Type Clinicians Facility Department ID 2020-07-07 2020-07-08 Day nullFlavo [facility] [id number] Memoria 12:31:00 04:59:00 Surgery [facility] 04 [facility] 2020-07-07 2020-07-07 Outpatient Physician, [facility] [id number] 07:31:00 23:59:00 Non 04 Associated 2020-07-07 2020-07-07 Outpatient Physician, [facility] [id number] 07:31:00 23:59:00 Non 04 Associated 2020-07-04 2020-07-05 Outpatient nullFlavo [facility] [id number] Memoria 18:40:00 04:59:59 r Care [place] 00 l [facility] 2020-07-04 2020-07-04 Outpatient VISIT, MG MG [id number] 13:40:00 23:59:59 NURSE [facility]WU 00 2020-07-04 2020-07-04 Outpatient MHIE MHIE [id number] Memoria 13:40:00 13:40:00 00 [facility] 2020-01-12 2020-01-13 Day nullFlavo [facility] [id number] Memoria 10:31:00 04:59:00 Surgery [facility] 02 [facility] 2020-01-12 2020-01-12 Outpatient Franky Nicholson [facility] [id number] 05:31:00 23:59:00 2020-01-12 2020-01-12 Outpatient Franky Nicholson [facility] [id number] 05:31:00 23:59:00 2019-11-30 2019-12-01 Day nullFlavo [facility] [id number] Memoria 10:40:00 04:59:00 Surgery r [place] 01 l [facility] 2019-11-30 2019-11-30 Outpatient Franky Nicholson [facility] [id number] 05:40:00 23:59:00 2019-05-25 2019-05-26 Day nullFlavo [facility] [id number] Memoria 12:02:00 05:59:00 Surgery r [place] 00 l [facility] 2019-05-25 2019-05-25 Outpatient Franky Nicholson [facility] [id number] 06:02:00 23:59:00 00 2019-02-15 2019-02-15 [facility] [id number] 09:15:00 09:15:00 t [place] [employer] [facility] [address] [facility] Medicine Outpati ent Clinics 2019-02-02 2019-02-02 [facility] [id number] 15:15:00 15:15:00 t [employer] - [facility] Medicine l Medicine Outpati ent Clinics 2018-06-17 2018-06-17 [facility] [id number] 10:13:00 10:13:00 t [place] [employer] [facility] [address] [facility] Medicine l Medicine Outpati ent Clinics 2018-06-16 2018-06-16 [facility] [id number] 08:45:00 08:45:00 t [place] [employer] [facility] Medicine l Medicine Outpati ent Clinics 2017-12-09 2017-12-09 [facility] [id number] 07:58:00 07:58:00 t [employer] - [facility] l Medicine Outpati ent Clinics 2017-12-08 2017-12-08 [facility] [id number] 10:15:00 10:15:00 t [place] [employer] [address] [facility] Medicine Outpati ent Clinics 2017-09-10 2017-09-10 [facility] [id number] 08:45:00 08:45:00 [place] [employer] [address] [facility] 2017-09-05 2017-09-05 [facility] [id number] [facility] 09:39:00 09:39:00 [place] [employer] [address] [facility] 2017-08-19 2017-08-19 [facility] [id number] [facility] [address] 09:35:00 09:35:00 [place] [employer] [address] [facility] 2017-08-12 2017-08-12 [facility] [id number] [facility] [address] 14:03:00 14:03:00 [place] [employer] [address] [facility] 2017-07-28 2017-07-28 [facility] [id number] [address] 10:45:00 10:45:00 [place] [employer] [address] [facility] Results Test Description Test Time Test Comments Results Result Sourc e Comments ELECTROLYTES 2020-07-07 3.8 [facility] 18:52:00 [place] CHEM PANEL 2020-07-07 96 [facility] 13:51:00 [place] CHEM PANEL 2020-07-07 23 [facility] 13:51:00 [place] CHEM PANEL 2020-07-07 1.15 [facility] 13:51:00 [place] CHEM PANEL 2020-07-07 135 [facility] 13:51:00 [place] CHEM PANEL 2020-07-07 5.4 [facility] 13:51:00 [place] CHEM PANEL 2020-07-07 106 [facility] 13:51:00 [place] CHEM PANEL 2020-07-07 21 [facility] 13:51:00 [place] CHEM PANEL 2020-07-07 8.7 [facility] 13:51:00 [place] CHEM PANEL 2020-07-07 13.4 [facility] 13:51:00 [place] CHEM PANEL 2020-07-07 54 [facility] 13:51:00 [place] IMMUNOLOGY 2020-07-04 Not Detected [facility] 16:39:00 *NA*(3/16/21 [place] 11:39 AM) CHEM PANEL 2020-01-12 12.1 [facility] 11:13:00 [place] CHEM PANEL 2020-01-12 51 [facility] 11:13:00 [place] ENDOCRINOLOGY 2020-01-12 3 [facility] 11:13:00 [place] CHEM PANEL 2020-01-12 52 [facility] 11:13:00 [place] CHEM PANEL 2020-01-12 1.20 [facility] 11:13:00 [place] CHEM PANEL 2020-01-12 100 [facility] 11:13:00 [place] CHEM PANEL 2020-01-12 20 [facility] 11:13:00 [place] CHEM PANEL 2020-01-12 1.22 [facility] 11:13:00 [place] CHEM PANEL 2020-01-12 138 [facility] 11:13:00 [place] CHEM PANEL 2020-01-12 4.1 [facility] 11:13:00 [place] CHEM PANEL 2020-01-12 107 [facility] 11:13:00 [place] CHEM PANEL 2020-01-12 23 [facility] 11:13:00 [place] CHEM PANEL 2020-01-12 9.5 [facility] 11:13:00 [place] IMMUNOLOGY 2020-01-09 Not Detected [facility] 15:15:00 *NA*(01/09/20 [place] 10:15 AM) CHEM PANEL 2019-11-30 1.2 [facility] 12:56:00 [place] CHEM PANEL 2019-11-30 52 [facility] 12:56:00 [place] CHEM PANEL 2019-11-30 96 [facility] 11:44:00 [place] CHEM PANEL 2019-11-30 22 [facility] 11:44:00 [place] CHEM PANEL 2019-11-30 1.30 [facility] 11:44:00 [place] CHEM PANEL 2019-11-30 137 [facility] 11:44:00 [place] CHEM PANEL 2019-11-30 3.8 [facility] 11:44:00 [place] CHEM PANEL 2019-11-30 103 [facility] 11:44:00 [place] CHEM PANEL 2019-11-30 23 [facility] 11:44:00 [place] CHEM PANEL 2019-11-30 9.9 [facility] 11:44:00 [place] CHEM PANEL 2019-11-30 14.8 [facility] 11:44:00 [place] CHEM PANEL 2019-11-30 47 [facility] 11:44:00 [place] IMMUNOLOGY 2019-11-26 Not Detected [facility] 14:19:00 *NA*(11/26/19 [place] 9:19 AM) CHEM PANEL 2019-05-25 113 [facility] 12:56:00 [place] CHEM PANEL 2019-05-25 23 [facility] 12:56:00 [place] CHEM PANEL 2019-05-25 1.14 [facility] 12:56:00 [place] CHEM PANEL 2019-05-25 138 [facility] 12:56:00 [place] CHEM PANEL 2019-05-25 4.3 [facility] 12:56:00 [place] CHEM PANEL 2019-05-25 108 [facility] 12:56:00 [place] CHEM PANEL 2019-05-25 21 [facility] 12:56:00 [place] CHEM PANEL 2019-05-25 9.5 [facility] 12:56:00 [place] CHEM PANEL 2019-05-25 13.3 [facility] 12:56:00 [place] CHEM PANEL 2019-05-25 55 [facility] 12:56:00 [place] HEMATOLOGY 2019-05-25 10.0 [facility] 12:56:00 [place] HEMATOLOGY 2019-05-25 5.18 [facility] 12:56:00 [place] HEMATOLOGY 2019-05-25 14.5 [facility] 12:56:00 [place] HEMATOLOGY 2019-05-25 42.3 [facility] 12:56:00 [place] HEMATOLOGY 2019-05-25 81.7 [facility] 12:56:00 [place] HEMATOLOGY 2019-05-25 12:56:00 Test Item Value Reference Range Interpretation Comme nts MCH (test code = MCH) 27.9 pg 27.0-31.0 [facility] [id number] 12:56:0034.2[facility] 2019-05-25 12:56:0014.2[facility] [id number] 12:56:02789Ukeclcvi [id number] 12:56:008.4[facility] [place]
[2020-12-23 11:00] LABS: Absolute Lymphocytes (CBC) 1.5 K/uL (0.7-4.9); Basophils % 0.8 % (0-1.3); Hematocrit 41.7 % (36.0-45.0); Lymphocytes % 19.2 % (15.3-44.8); MPV 8.4 fL (7.6-11.3); RBC Red Blood Cell Count 5.09 M/uL (3.86-4.86)
[2020-12-23 11:06] LABS: Protime INR 0.98
[2020-12-23 11:25] LABS: ALT/SGPT 24 U/L (12-78); AST/SGOT 8 U/L (15-37); Albumin 3.6 g/dL (3.4-5.0); Alkaline Phosphatase 51 U/L (45-117); BUN Blood Urea Nitrogen 19 mg/dL (7-18); Bicarbonate 26 mmol/L (21-32); Bilirubin Direct 0.1 mg/dL (0-0.2); Bilirubin Total 0.4 mg/dL (0.2-1.0); Glucose Level 90 mg/dL (74-106); Magnesium 2.2 mg/dL (1.8-2.4); NT PRO-BNP 79 pg/mL (<125); Potassium 3.8 mmol/L (3.5-5.1); Protein, Total 7.1 g/dL (6.4-8.2); Sodium Level 138 mmol/L (136-145); Troponin (Emerg Dept Use Only) < 0.02 ng/mL (0.0-0.045)
--- NOTE | 2020-12-23 11:59 | RAD REPORT ---
EXAM DESCRIPTION: [place]o Single View12/23/2020 11:23 am CLINICAL HISTORY: Chest pain COMPARISON: none FINDINGS: Lungs appear grossly clear. Heart is normal size
[2020-12-23] MEDS ORDERED: KETOROLAC 30 MG/ML INJ ONE (13:35)
[2020-12-23] MEDS ORDERED: NA CHLORIDE 0.9% 1,000 ML ONE (13:35)
--- NOTE | 2020-12-23 14:25 | EDPHYS ---
Physician Documentation [facility] Name: Juany Roberts Age: 55 yrs Sex: Female : 1965 Arrival Date: 12/23/2020 Time: 10:10 Bed 27 Private MD: BENNY Physician Dejuan Reed HPI: 12/23 12:46 This 55 yrs old Female presents to ER via Ambulatory with complaints of Chest pm1 Pain, Arm Pain. 12:46 The patient or guardian reports chest pain that is located primarily in the anterior pm1 aspect of left upper chest and left breast. Onset: 1 week(s) ago. The pain does not radiate. Associated signs and symptoms: Pertinent positives: Left armpit pain, shortness of breath with exertion, Pertinent negatives: cough, headache, nausea, vomiting. The chest pain is described as sharp. Duration: The patient or guardian reports a single episode, that is still ongoing. Modifying factors: the symptoms are aggravated by movement, palpation of area. Severity of pain: in the emergency department the pain is unchanged. The patient has not recently seen a physician. Onset of pain after doing yard work. 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 - Social history:: Smoking status: Patient denies any tobacco usage or history of. ROS: 12:46 Constitutional: Negative for fever, chills, and weight loss. pm1 12:46 Cardiovascular: Positive for chest pain. pm1 12:46 Abdomen/GI: Negative for abdominal pain, nausea, vomiting, diarrhea, and constipation, pm1 Back: Negative for injury and pain, MS/Extremity: Negative for injury and deformity, Skin: Negative for injury, rash, and discoloration, Neuro: Negative for headache, weakness, numbness, tingling, and seizure. 12:46 Respiratory: Positive for shortness of breath, on exertion. Negative for cough, wheezing. 12:46 All other systems are negative. Exam: 12:46 Constitutional: This is a well developed, well nourished patient who is awake, alert, pm1 and in no acute distress. Head/Face: Normocephalic, atraumatic. 12:46 Back: No spinal tenderness. No costovertebral tenderness. Full range of motion. Skin: Warm, dry with normal turgor. Normal color with no rashes, no lesions, and no evidence of cellulitis. MS/ Extremity: Pulses equal, no cyanosis. Neurovascular intact. Full, normal range of motion. 12:46 Eyes: Exam is negative for acute changes, Extraocular movements: no acute changes, Conjunctiva: no acute changes, no injection, Sclera: no acute changes, icterus, is not appreciated. 12:46 ENT: Exam is negative for acute changes, External ear(s): are unremarkable, Ear canal(s): no acute changes, TM's: are normal, Mouth: Lips: normal, Oral mucosa: normal, pink and intact, moist. 12:46 Cardiovascular: Exam negative for acute changes, Rate: normal, Rhythm: regular, Pulses: no pulse deficits are appreciated, Heart sounds: normal, Edema: is not appreciated. 12:46 Respiratory: Exam negative for acute changes, respiratory distress, shortness of breath, Breath sounds: are clear throughout. 12:46 Abdomen/GI: Exam negative for acute changes, Inspection: abdomen appears normal, Palpation: abdomen is soft and non-tender, in all quadrants. 12:46 Neuro: Exam negative for acute changes, Orientation: is normal, Mentation: is normal, Motor: is normal, moves all fours. Vital Signs: 10:26 BP 124 / 89; Pulse 59; Resp 18 S; Temp 98.9(O); Pulse Ox 97% on R/A; Weight 113.4 kg aa5 (R); Height 5 ft. 3 in. (160.02 cm) (R); Pain 5/10; 12:50 BP 139 / 87; Pulse 69; Resp 16; Temp 98.7; Pulse Ox 96% on R/A; zb 14:20 BP 133 / 84; Pulse 55; Resp 16; Pulse Ox 96% on R/A; zb 10:26 Body Mass Index 44.29 (113.40 kg, 160.02 cm) aa MDM: 12:37 Patient medically screened. [place] 14:22 Data reviewed: vital signs. Data interpreted: Pulse oximetry: on room air is 96 %. pm1 Interpretation: normal. Counseling: I had a detailed discussion with the patient and/or guardian regarding: the historical points, exam findings, and any diagnostic results supporting the discharge/admit diagnosis, lab results, radiology results, the need for outpatient follow up, to return to the emergency department if symptoms worsen or persist or if there are any questions or concerns that arise at home. 12/23 10:31 Order name: Basic Metabolic Panel; Complete Time: 12:38 12/23 10:31 Order name: CBC with Diff; Complete Time: 12:38 12/23 10:31 Order name: LFT's; Complete Time: 12:38 12/23 10:31 Order name: Magnesium; Complete Time: 12:38 12/23 10:31 Order name: NT PRO-BNP; Complete Time: 12:38 12/23 10:31 Order name: PT-INR; Complete Time: 12:38 12/23 10:31 Order name: Troponin (emerg Dept Use Only); Complete Time: 12:38 12/23 10:31 Order name: XRAY Chest (1 view); Complete Time: 12:38 12/23 10:31 Order name: EKG; Complete Time: 10:32 12/23 10:31 Order name: EKG - Nurse/Tech; Complete Time: 10:31 12/23 10:31 Order name: IV Saline Lock; Complete Time: 10:48 12/23 10:31 Order name: Labs collected and sent; Complete Time: 10:48 12/23 10:31 Order name: O2 Per Protocol; Complete Time: 10:31 12/23 10:31 Order name: O2 Sat Monitoring; Complete Time: 12:50 aa Administered Medications: 13:20 Drug: Ketorolac 30 mg Route: IVP; Site: right antecubital; zb 14:30 Follow up: Response: No adverse reaction; Pain is decreased zb 13:21 Drug: NS 0.9% 1000 ml Route: IV; Rate: 1000 ml; Site: right antecubital; zb 15:24 Follow up: Response: No adverse reaction zb Disposition Summary: 12/23/20 14:24 Discharge Ordered Location: Home pm1 Problem: new pm1 Symptoms: have improved pm1 Condition: Stable pm1 Diagnosis - Chest pain, unspecified pm1 Followup: pm1 - With: Emergency Department - When: As needed - Reason: Worsening of condition Followup: pm1 - With: Private Physician - When: 2 - 3 days - Reason: Recheck today's complaints, Continuance of care, Re-evaluation by your physician Discharge Instructions: - Discharge Summary Sheet pm1 - Nonspecific Chest Pain, Adult pm1 Forms: - Medication Reconciliation Form pm1 - Thank You Letter pm1 - Antibiotic Education pm1 - Prescription Opioid Use pm1 Prescriptions: - Cyclobenzaprine 10 mg Oral Tablet - take 1 tablet by ORAL route every 8 hours As needed; 30 tablet; Refills: 0, pm1 Product Selection Permitted Addendum: 12/25/2020 15:10 Co-signature as Attending Physician, Dejuan Reed MD I agree with the assessment and c macdonald plan of care. Signatures: Dispatcher [employer] EDDejuan Lei MD MD cha Calderon, Audri, RN RN aa5 Pancho Zavala NP INSURANCE HEALTHCARE REPRESENTATIVE pm1 Andreina Arcos RN RN zb Corrections: (The following items were deleted from the chart) 12/23 10:30 10:27 Home Meds: Trimox Oral; bobby aa5
--- NOTE | 2020-12-23 14:25 | ER ---
Nurse's Notes [facility] Name: Juany Roberts Age: 55 yrs Sex: Female : 1965 Arrival Date: 12/23/2020 Time: 10:10 Bed 27 Private MD: Diagnosis: Chest pain, unspecified Presentation: 12/23 10:25 Chief complaint: Patient states: left sided chest x 1 week ago. Pt also reports SOB on aa5 exertion. Onset of symptoms was 2020. 10:25 Method Of Arrival: Ambulatory aa5 10:25 Acuity: ANGEL 3 aa5 10:26 Coronavirus screen: At this time, the client does not indicate any symptoms associated aa5 with coronavirus-19. Ebola Screen: Patient negative for fever greater than or equal to 101.5 degrees Fahrenheit, and additional compatible Ebola Virus Disease symptoms. Initial Sepsis Screen: Does the patient meet any 2 criteria? No. Patient's initial sepsis screen is negative. Does the patient have a suspected source of infection? No. Patient's initial sepsis screen is negative. Risk Assessment: Do you want to hurt yourself or someone else? Patient reports no desire to harm self or others. 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 - Social history:: Smoking status: Patient denies any tobacco usage or history of. Screenin:58 Abuse screen: Denies threats or abuse. Denies injuries from another. Nutritional zb screening: No deficits noted. Tuberculosis screening: No symptoms or risk factors identified. Fall Risk None identified. Assessment: 12:51 General: Appears uncomfortable, Behavior is calm, cooperative, Denies fever, feeling zb ill, fatigue, chills. Pain: Complains of pain in anterior aspect of left upper chest, left lateral posterior chest, left posterior upper chest wall, right posterior upper chest wall and left posterior lower chest wall Pain does not radiate. Pain currently is 2 out of 10 on a pain scale. at worst was 8 out of 10 on a pain scale. Quality of pain is described as pressure, Pain began a bout a week ago Alleviated by rest, Aggravated by increased activity, repositioning, Noted to be grimacing. Neuro: Level of Consciousness is awake, alert, obeys commands, Oriented to person, place, time, situation. Cardiovascular: Heart tones S1 S2 present Capillary refill < 3 seconds Patient's skin is warm and dry. Respiratory: Airway is patent Respiratory effort is even, unlabored, Respiratory pattern is regular, symmetrical. GI: No deficits noted. : No deficits noted. Derm: Skin is intact, is healthy with good turgor, Skin is normal, Skin temperature is warm. Musculoskeletal: Range of motion: intact in left shoulder. 13:30 Reassessment: Patient appears in no apparent distress at this time. Patient and/or zb family updated on plan of care and expected duration. Pain level reassessed. Patient is alert, oriented x 3, equal unlabored respirations, skin warm/dry/pink. IV fluid infusing. 14:20 Reassessment: Patient appears in no apparent distress at this time. Patient and/or zb family updated on plan of care and expected duration. Pain level reassessed. Patient is alert, oriented x 3, equal unlabored respirations, skin warm/dry/pink. IV fluid infusing. 15:23 Also complains of. Reassessment: Patient appears in no apparent distress at this time. zb Patient and/or family updated on plan of care and expected duration. Pain level reassessed. Patient is alert, oriented x 3, equal unlabored respirations, skin warm/dry/pink. patient ambulated out. decreased pain. d/c given by ED staffing program manager. Vital Signs: 10:26 BP 124 / 89; Pulse 59; Resp 18 S; Temp 98.9(O); Pulse Ox 97% on R/A; Weight 113.4 kg aa5 (R); Height 5 ft. 3 in. (160.02 cm) (R); Pain 5/10; 12:50 BP 139 / 87; Pulse 69; Resp 16; Temp 98.7; Pulse Ox 96% on R/A; zb 14:20 BP 133 / 84; Pulse 55; Resp 16; Pulse Ox 96% on R/A; zb 10:26 Body Mass Index 44.29 (113.40 kg, 160.02 cm) 5 ED Course: 10:10 Patient arrived in ED. as 10:26 Triage completed. aa5 10:26 Arm band placed on. EKG completed in triage. Results shown to MD. aa5 10:46 Initial lab(s) drawn, by me, sent to lab. Inserted saline lock: 20 gauge in right aa5 antecubital area, using aseptic technique. Blood collected. 11:23 XRAY Chest (1 view) In Process Unspecified. EDMS 12:30 Pancho Zavala NP is PHCP. pm1 12:30 Dejuan Reed MD is Attending Physician. pm1 12:42 Andreina Arcos RN is Primary Nurse. zb 13:01 Patient has correct armband on for positive identification. Pulse ox on. NIBP on. zb 13:02 Patient maintains SpO2 saturation greater than 95% on room air. zb 15:23 No provider procedures requiring assistance completed. IV discontinued, intact, zb bleeding controlled, No redness/swelling at site. Pressure dressing applied. Administered Medications: 13:20 Drug: Ketorolac 30 mg Route: IVP; Site: right antecubital; zb 14:30 Follow up: Response: No adverse reaction; Pain is decreased zb 13:21 Drug: NS 0.9% 1000 ml Route: IV; Rate: 1000 ml; Site: right antecubital; zb 15:24 Follow up: Response: No adverse reaction zb Outcome: 14:24 Discharge ordered by MD. pm1 15:23 Patient left the ED. iw 15:23 Discharge instructions given to patient, Instructed on discharge instructions, follow zb up and referral plans. medication usage, Demonstrated understanding of instructions, follow-up care, medications, Prescriptions given X 1. 15:24 Discharged to home ambulatory. zb 15:24 Condition: good Signatures: Dispatcher [employer] EDHI Marilu Norton Irene, RN RN Kimmy Alegre RN RN aa Pancho Zavala NP ASSEMBLY LINE DRIVER pm1 Andreina Arcos RN RN lisa Corrections: (The following items were deleted from the chart) 10:30 10:27 Home Meds: Trimox Oral; aa5 aa5 15:24 15:24 Response: No adverse reaction lisa gonzalez
[2020-12-23 15:48] VITALS: TEMP 98.7; O2SAT 96
[2020-12-23 15:49] VITALS: BP 133/84
--- NOTE | 2020-12-25 17:01 | EKG ---
Test Date: 2020-12-23 Test Time: 10:19:45 Jacket Changer: RESHMA MEASUREMENT RESULTS: Intervals: Rate: 63 CT: 164 QRSD: 92 QT: 410 QTc: 419 [place]: P: 54 CT: 164 QRS: -40 T: -38 INTERPRETIVE STATEMENTS: Normal sinus rhythm Left axis deviation ST & T wave abnormality, consider inferior ischemia ST & T wave abnormality, consider anterolateral ischemia Abnormal ECG Compared to ECG 12/09/2013 09:55:57 Left-axis deviation now present ST (T wave) deviation now present Possible ischemia now present Electronically Signed On 12-25-20 16:57:09 CDT by Bartolo Vivas
== END 2020-12-23 15:23 | disposition home or self-care (01) ==
LOC: ER 10:09
DX: R07.9 Chest pain, unspecified (principal); I10 Essential (primary) hypertension; Z79.82 Long term (current) use of aspirin; Z88.3 Allergy status to other anti-infective agents; Z88.5 Allergy status to narcotic agent
CPT/HCPCS: 93005; 85025; 80048; 36415; 83735; 85610; 80076; 84484; 83880; 71045; 96374; 99284; J7030